=== PATIENT | male | born 1985 | race American Indian/Alaskan Native ===

== ENCOUNTER 2018-06-13 09:07 | Inpatient (IN) | payer MEDICAID ==
[2018-06-13 10:16] LABS: BASO # 0.1 K/uL (0.0-0.2); BASO % 1.5 % (0.0-2.0); EOS # 0.9 K/uL (0.0-0.7); EOS % 10.5 % (0.0-4.0); HEMOGLOBIN 12.6 g/dL (12.0-18.0); LYMPH # 1.9 K/uL (1.0-4.3); LYMPH % 22.2 % (20.0-40.0); MEAN CORPUSCULAR HEMOGLOBIN 26.2 pg (27.0-31.0); MEAN CORPUSCULAR HGB CONC 33.4 g/dL (33.0-37.0); MEAN PLATELET VOLUME 7.5 fL (7.2-11.7); MONO # 0.5 K/uL (0.0-0.8); MONO % 5.3 % (0.0-10.0); NEUT # 5.3 K/uL (1.8-7.0); NEUT % 60.5 % (50.0-75.0); RBC 4.79 Mil/uL (4.40-5.90); RED CELL DISTRIBUTION WIDTH 16.2 % (11.5-14.5); WHITE BLOOD COUNT 8.8 K/uL (4.8-10.8)
[2018-06-13 10:20] LABS: MEAN CELL VOLUME 78.6 fL (80.0-94.0)
[2018-06-13 10:24] LABS: ALB/GLOB RATIO 1.1 (1.0-2.1); ALBUMIN 3.8 g/dL (3.5-5.0); CALCIUM 8.8 mg/dl (8.6-10.4)
[2018-06-13 10:33] LABS: SQUAMOUS EPITHIAL 12 /hpf (0-5); URINE BACTERIA RARE (<OCC); URINE BILIRUBIN NEGATIVE (NEGATIVE); URINE BLOOD NEGATIVE (NEGATIVE); URINE CLARITY Hazy (Clear); URINE COLOR Yellow (YELLOW); URINE GLUCOSE (UA) NORMAL (Normal); URINE LEUKOCYTE ESTERASE 3+ Leu/uL (Negative); URINE PROTEIN 2+ mg/dL (NEGATIVE)
--- NOTE | 2018-06-13 10:34 | C.PDOC ---
History Of Present Illness 33 y/o male,w/PMhx of HTN, presents to the ER complaining of shortness of breath which began yesterday. Patient states that the shortness of breath is worse with walking. Patient reports that he ran out of his blood pressure medications 3 weeks ago. Denies having CP, fever,chills, nausea, and vomiting. Of note, patient was admitted for pneumonia in [facility] in February 2018. Time Seen by Provider: 06/13/18 09:30 Chief Complaint (Nursing): Shortness Of Breath History Per: Patient History/Exam Limitations: no limitations Onset/Duration Of Symptoms: Days Current Symptoms Are (Timing): Still Present Severity: Moderate Past Medical History Reviewed: Historical Data, Nursing Documentation, Vital Signs Vital Signs: Last Vital Signs Temp 97.9 F 06/13/18 09:13 Pulse 86 06/13/18 10:21 Resp 21 06/13/18 10:21 BP 150/98 H 06/13/18 10:21 Pulse Ox 99 06/13/18 10:21 - Medical History PMH: HTN Denies: Chronic Kidney Disease Surgical History: No Surg Hx Family History: States: No Known Family Hx - Social History Hx Alcohol Use: Yes Hx Substance Use: No Review Of Systems Except As Marked, All Systems Reviewed And Found Negative. Constitutional: Negative for: Fever, Chills Cardiovascular: Negative for: Chest Pain Respiratory: Positive for: Shortness of Breath Gastrointestinal: Negative for: Nausea, Vomiting Physical Exam - Physical Exam Appears: Non-toxic, No Acute Distress Skin: Normal Color, Warm, Dry Head: Atraumatic, Normacephalic Eye(s): bilateral: Normal Inspection Nose: Normal Oral Mucosa: Moist Neck: Supple Chest: Symmetrical Cardiovascular: Rhythm Regular Respiratory: Normal Breath Sounds, No Rales, No Rhonchi, No Wheezing Gastrointestinal/Abdominal: Normal Exam, Soft, No Tenderness, No Guarding, No Rebound Neurological/Psych: Oriented x3, Normal Speech Additional Physical Exam Comments: pt is hypertensive ED Course And Treatment - Laboratory Results Result Diagrams: 06/13/18 10:08 06/13/18 10:08 Lab Results: Total Bilirubin 0.6 mg/dL (0.2-1.3) 06/13/18 10:08 AST 23 U/L (17-59) 06/13/18 10:08 ALT 21 U/L (21-72) D 06/13/18 10:08 Alkaline Phosphatase 63 U/L (38-126) 06/13/18 10:08 Total Protein 7.1 g/dL (6.3-8.3) 06/13/18 10:08 Albumin 3.8 g/dL (3.5-5.0) 06/13/18 10:08 Globulin 3.3 gm/dL (2.2-3.9) 06/13/18 10:08 Albumin/Globulin Ratio 1.1 (1.0-2.1) 06/13/18 10:08 Lab Interpretation: No Acute Changes ECG: Interpreted By Me ECG Rhythm: Sinus Rhythm, R BBB, ST/T Changes, Nonspecific Changes Rate From EC O2 Sat by Pulse Oximetry: 99 (RA) Pulse Ox Interpretation: Normal - Radiology CXR: Interpreted by Me CXR Interpretation: Yes: No Acute Disease - Other Rad No standard instances X-Ray: Viewed By Me, Read By Radiologist Interpretation: FINDINGS: LUNGS: Mild to moderate interstitial prominence may reflect infection or edema. No focal consolidation. PLEURA: No significant pleural effusion identified. No definite pneumothorax . CARDIOVASCULAR: Heart size appears top normal. No atherosclerotic calcification present. OSSEOUS STRUCTURES: No acute osseous abnormality identified. VISUALIZED UPPER ABDOMEN: Unremarkable. OTHER FINDINGS: None. IMPRESSION: Mild to moderate interstitial prominence may reflect infection or edema. - CT Scan/US No standard instances Other Rad Studies (CT/US): Read By Radiologist, Radiology Report Reviewed CT/US Interpretation: FINDINGS: VENTILATION COMPONENT: Normal. PERFUSION COMPONENT: Heterogeneous distribution of radionuclide. No geographic, segmental, lobar abnormalities apparent on the present examination. Heterogeneous perfusion consistent with findings on recent chest x-ray. IMPRESSION: Low probability ventilation perfusion scan for pulmonary embolism. Progress Note: Treated with norvasc 10 mg PO. Case discussed with hospitalist who agrees to OBS. Doppler LE-neg for DVT. On re-evaluation lungs clear Reassessment Condition: Unchanged - Physician Consult Information Physician Contacted: Gali Duke Outcome Of Conversation: admit Medical Decision Making Medical Decision Making: Plan: --Labs --ECG --CXR --Norvasc PO Disposition Discussed With : Gali Duke Doctor Will See Patient In The: Hospital - Disposition Disposition: HOSPITALIZED Disposition Time: 12:00 Condition: STABLE - POA Present On Arrival: None - Clinical Impression Clinical Impression: Hypertension, Dyspnea - PA / DIRECTOR HEMATOLOGY / Resident Statement MD/DO has reviewed & agrees with the documentation as recorded. - Scribe Statement The provider has reviewed the documentation as recorded by the Scribe Quinton Caban Provider Attestation All medical record entries made by the Scribe were at my direction and personally dictated by me. I have reviewed the chart and agree that the record accurately reflects my personal performance of the history, physical exam, medical decision making, and the department course for this patient. I have also personally directed, reviewed, and agree with the discharge instructions and disposition. Decision To Admit - Pt Status Changed To: Hospital Disposition Of: Observation - . Bed Request Type: Regular Admitting Physician: Gali Duke Patient Diagnosis: Hypertension, Dyspnea
[2018-06-13 10:36] LABS: TROPONIN I 0.088 ng/mL (0.00-0.120)
--- NOTE | 2018-06-13 11:22 | RAD ---
HISTORY: Cough r/o CHF COMPARISON: Chest x-ray performed 02/28/18 TECHNIQUE: Chest PA and lateral, 2 views FINDINGS: LUNGS: Mild to moderate interstitial prominence may reflect infection or edema. No focal consolidation. PLEURA: No significant pleural effusion identified. No definite pneumothorax . CARDIOVASCULAR: Heart size appears top normal. No atherosclerotic calcification present. OSSEOUS STRUCTURES: No acute osseous abnormality identified. VISUALIZED UPPER ABDOMEN: Unremarkable. OTHER FINDINGS: None. IMPRESSION: Mild to moderate interstitial prominence may reflect infection or edema.
--- NOTE | 2018-06-13 12:08 | CP.PCM.HP ---
<Nayan Lincoln - Last Filed: 06/13/18 19:44> History of Present Illness - History of Present Illness History of Present Illness: PGY3 note for Dr. Lerma's service Patient is a 33 year old male, with PMHx of HTN, pulmonary HTN, CHF (systolic), CKD (stage III) and recent admission to [facility] in 02/2018 for pneumonia, presents for shortness of breath. Patient states he began noticing increased SOB and generalized fatigue over "the last few days" but became markedly worse yesterday. He states he became "winded tying his shoes" and knew he had to go to the hospital. SOB worse with walking, improves mildly with rest. States during shower he had episode of "chest tightness" without radiation to arm/neck, that passed "a few minutes after he finished showering." Admits he has not been restricting his fluid intake since discharge. Admits he has not taken any medications prescribed at previous discharge for the last month. Former smoker (1 ppd x 15 yrs; quit in 02/2018). Denies family history of blood clots, heart disease, or kidney disease. Denies having fever,chills, difficulty urinating, change in urine stream, urgency, nausea, and vomiting. PMHx: see above Surgical Hx: None Allergies: NKA Social: 1 ppd smoker x15 years, but quit after discharge in February. Drinks 2x per week "1-2 beers" each time. Denies drug use including Marijuana, cocaine, heroin, or other. Unemployed. Lives in apartment with girlfriend in . Hospitalizations: 02/2018 ([facility] - Pneumonia) Family Hx: No known family hx Medications: (At discharge from [facility] 06/13/18) ASA 81 mg PO daily, Crestor 5 mg PO HS, Lopressor 50 mg PO BID (03/03), Entresto 1 tab PO BID, Norvasc 10 mg PO daily but admits not taking BP meds x 3 weeks PMD: None Present on Admission - Present on Admission Any Indicators Present on Admission: No History of DVT/PE: No History of Uncontrolled Diabetes: No Review of Systems - Constitutional Constitutional: absent: Chills, Fever - EENT Eyes: absent: Change in Vision Ears: absent: Tinnitus, Dizziness Nose/Mouth/Throat: absent: Hoarsness - Cardiovascular Cardiovascular: Dyspnea, Dyspnea on Exertion. absent: Chest Pain - Respiratory Respiratory: Cough, Dyspnea - Gastrointestinal Gastrointestinal: absent: Abdominal Pain, Nausea, Vomiting - Genitourinary Genitourinary: absent: Dysuria, Flank Pain, Hematuria - Musculoskeletal Musculoskeletal: absent: Numbness, Tingling - Integumentary Integumentary: absent: Dry Skin, Wounds - Neurological Neurological: Weakness - Psychiatric Psychiatric: absent: Anxiety, Depression - Endocrine Endocrine: Fatigue Past Patient History - Past Medical History & Family History Past Medical History?: Yes - Past Social History Smoking Status: Heavy Smoker > 10 Cigarettes Daily - CARDIAC Hx Hypertension: Yes - PULMONARY Hx Respiratory Disorders: No - NEUROLOGICAL Hx Neurological Disorder: No - HEENT Hx HEENT Problems: No - RENAL Hx Chronic Kidney Disease: No - ENDOCRINE/METABOLIC Hx Endocrine Disorders: No - HEMATOLOGICAL/ONCOLOGICAL Hx Blood Disorders: No - INTEGUMENTARY Hx Dermatological Problems: No - MUSCULOSKELETAL/RHEUMATOLOGICAL Hx Musculoskeletal Disorders: No Hx Falls: No - GASTROINTESTINAL Hx Gastrointestinal Disorders: No - GENITOURINARY/GYNECOLOGICAL Hx Genitourinary Disorders: No - PSYCHIATRIC Hx Substance Use: No - SURGICAL HISTORY Hx Surgeries: No - ANESTHESIA Hx Anesthesia: No Meds Allergies/Adverse Reactions: Allergies Allergy/AdvReac Type Severity Reaction Status Date / Time No Known Allergies Allergy Verified 06/13/18 09:18 Physical Exam - Constitutional Appears: Non-toxic, No Acute Distress - Head Exam Head Exam: ATRAUMATIC, NORMAL INSPECTION - Eye Exam Eye Exam: EOMI. absent: Scleral icterus Pupil Exam: PERRL - ENT Exam ENT Exam: Mucous Membranes Moist, Normal Exam - Neck Exam Neck exam: Positive for: Normal Inspection - Respiratory Exam Respiratory Exam: Rales (bases of both lungs), NORMAL BREATHING PATTERN - Cardiovascular Exam Cardiovascular Exam: REGULAR RHYTHM, +S1, +S2. absent: Tachycardia, Systolic Murmur - GI/Abdominal Exam GI & Abdominal Exam: Normal Bowel Sounds, Soft. absent: Tenderness - Extremities Exam Extremities exam: Positive for: normal inspection. Negative for: pedal edema - Back Exam Back exam: absent: CVA tenderness (L), CVA tenderness (R) - Neurological Exam Neurological exam: Alert, CN II-XII Intact, Oriented x3 - Psychiatric Exam Psychiatric exam: Normal Affect, Normal Mood - Skin Skin Exam: Dry, Normal Color, Warm Results - Vital Signs Recent Vital Signs: Last Vital Signs Temp 97.9 F 06/13/18 09:13 Pulse 79 06/13/18 11:05 Resp 30 H 06/13/18 11:05 BP 153/108 H 06/13/18 11:05 Pulse Ox 99 06/13/18 11:38 - Labs Result Diagrams: 06/13/18 10:08 06/13/18 10:08 Labs: Laboratory Results - last 24 hr 06/13/18 06/13/18 06/13/18 10:08 10:08 10:08 WBC 8.8 RBC 4.79 Hgb 12.6 Hct 37.7 MCV 78.6 L D MCH 26.2 L MCHC 33.4 RDW 16.2 H Plt Count 281 D MPV 7.5 Neut % (Auto) 60.5 Lymph % (Auto) 22.2 Branch % (Auto) 5.3 Eos % (Auto) 10.5 H Baso % (Auto) 1.5 Neut # (Auto) 5.3 Lymph # (Auto) 1.9 Branch # (Auto) 0.5 Eos # (Auto) 0.9 H Baso # (Auto) 0.1 D-Dimer, Quantitative 286 H Sodium 137 Potassium 3.9 Chloride 107 Carbon Dioxide 24 Anion Gap 10 BUN 25 H Creatinine 1.9 H Est GFR ( Amer) 49 Est GFR (Non-Af Amer) 41 Random Glucose 103 Calcium 8.8 Total Bilirubin 0.6 AST 23 ALT 21 D Alkaline Phosphatase 63 CK-MB (Mass) 2.00 Troponin I 0.0880 Total Protein 7.1 Albumin 3.8 Globulin 3.3 Albumin/Globulin Ratio 1.1 Urine Color Urine Clarity Urine pH Ur Specific Griffin Urine Protein Urine Glucose (UA) Urine Ketones Urine Blood Urine Nitrate Urine Bilirubin Urine Urobilinogen Ur Leukocyte Esterase Urine WBC (Auto) Urine RBC (Auto) Ur Squamous Epith Cells Urine Bacteria Hyaline Casts 06/13/18 10:21 WBC RBC Hgb Hct MCV MCH MCHC RDW Plt Count MPV Neut % (Auto) Lymph % (Auto) Branch % (Auto) Eos % (Auto) Baso % (Auto) Neut # (Auto) Lymph # (Auto) Branch # (Auto) Eos # (Auto) Baso # (Auto) D-Dimer, Quantitative Sodium Potassium Chloride Carbon Dioxide Anion Gap BUN Creatinine Est GFR ( Amer) Est GFR (Non-Af Amer) Random Glucose Calcium Total Bilirubin AST ALT Alkaline Phosphatase CK-MB (Mass) Troponin I Total Protein Albumin Globulin Albumin/Globulin Ratio Urine Color Yellow Urine Clarity Hazy Urine pH 6.0 Ur Specific Griffin 1.026 Urine Protein 2+ H Urine Glucose (UA) Normal Urine Ketones Negative Urine Blood Negative Urine Nitrate Negative Urine Bilirubin Negative Urine Urobilinogen 2.0 Ur Leukocyte Esterase 3+ H Urine WBC (Auto) 46 H Urine RBC (Auto) 8 H Ur Squamous Epith Cells 12 H Urine Bacteria Rare Hyaline Casts 6-10 H Assessment & Plan - Assessment and Plan (Free Text) Plan: CHF (HFrEF) exacerbation Observation, Telemetry ECHO (02/2018): LV mildly dilated; LV fxn markedly reduced EF ~30%, Mild to moderate concentric LVH; left atrial volume index increased; Moderate mitral regurgitation; Marked pulm HTN CXR (06/13/18): IMPRESSION: Mild to moderate interstitial prominence may reflect infection or edema. EKG (06/13/18): NSR @ 83 bpm; RBBB, Non-specific T wave changes (V5/V6), prolonged Qtc Trop negative x 1, f/u 2 additional Q6H Consult: Dr Cross, Desk Assistant - help appreciated - repeat ECHO - NPO for stress test in AM HOLD Entresto 24/26mg 1 tab PO BID Coreg 6.25 mg PO BID 1 Liter fluid restriction Head of bed 30 degrees Measure weight daily f/u BNP f/u repeat ECHO Chest pain, R/O ACS Trop negative x 2 EKG (06/13/18): NSR @ 83 bpm, T-waves inversion in V5/6, No acute ST changes, prolonged Qtc f/u 1 additional KARYNA/EKG Q6H Elevated D-dimer D-dimer 286 CTA C/I due to elevated Cr VQ scan (06/13/18): low probability of PE. Venous doppler LE: negative for DVT bilateral HTN urgency 180/132 on admission; 182/142 on repeat ED - given Norvasc 10mg in ED; Labetalol 10mg IV once in ED Coreg 6.25 mg PO BID Hydralazine 10mg PO QID HOLD Entresto 24/26mg 1 tab PO BID per Nephro CKD (stage 3), Proteinuria BUN/Cr 25/1.9, GFR 49, UA 2+ protein - Cr in 12/18 baseline: 1.8 Consult: Dr. South, Power Crane Operator - help appreciated - f/u repeat UA, microalbumin:Cr ratio, Protein:Cr ratio, Urine Electrolytes, Renal US - HOLD Entresto Abnormal UA; Proteinuria UA (06/13/18): Protein 2+, LE 3+, WBC 46, RBC 8, Sq Epithlial 12, Hyaline Casts 6- 10 - not clean cath; f/u repeat - Pt Asymptomatic Prolonged QTc Initial EKG showed QTc of 483 Avoid QT prolonging agents (i.e. Zofran) PPX VTE: Heparin 5000u Q12H GI PPX: not indicated at this time SCDs Hall Worker referral Nayan Lincoln PGY3 d/w Dr. Lerma <Priya Lerma V - Last Filed: 06/13/18 22:41> Results - Vital Signs Recent Vital Signs: Last Vital Signs Temp 97.6 F 06/13/18 15:00 Pulse 84 06/13/18 15:00 Resp 20 06/13/18 15:00 BP 163/106 H 06/13/18 15:00 Pulse Ox 96 06/13/18 15:00 - Labs Result Diagrams: 06/13/18 10:08 06/13/18 10:08 Labs: Laboratory Results - last 24 hr 06/13/18 06/13/18 06/13/18 10:08 10:08 10:08 WBC 8.8 RBC 4.79 Hgb 12.6 Hct 37.7 MCV 78.6 L D MCH 26.2 L MCHC 33.4 RDW 16.2 H Plt Count 281 D MPV 7.5 Neut % (Auto) 60.5 Lymph % (Auto) 22.2 Branch % (Auto) 5.3 Eos % (Auto) 10.5 H Baso % (Auto) 1.5 Neut # (Auto) 5.3 Lymph # (Auto) 1.9 Branch # (Auto) 0.5 Eos # (Auto) 0.9 H Baso # (Auto) 0.1 D-Dimer, Quantitative 286 H Sodium 137 Potassium 3.9 Chloride 107 Carbon Dioxide 24 Anion Gap 10 BUN 25 H Creatinine 1.9 H Est GFR ( Amer) 49 Est GFR (Non-Af Amer) 41 Random Glucose 103 Calcium 8.8 Total Bilirubin 0.6 AST 23 ALT 21 D Alkaline Phosphatase 63 Total Creatine Kinase CK-MB (Mass) 2.00 Troponin I 0.0880 NT-Pro-B Natriuret Pep Total Protein 7.1 Albumin 3.8 Globulin 3.3 Albumin/Globulin Ratio 1.1 Urine Color Urine Clarity Urine pH Ur Specific Griffin Urine Protein Urine Glucose (UA) Urine Ketones Urine Blood Urine Nitrate Urine Bilirubin Urine Urobilinogen Ur Leukocyte Esterase Urine WBC (Auto) Urine RBC (Auto) Ur Squamous Epith Cells Urine Bacteria Hyaline Casts Ur Random Creatinine Ur Random Sodium Ur Random Phosphorus Ur Random Calcium Urine Microalbumin Urine Magnesium Urine Opiates Screen Urine Methadone Screen Ur Barbiturates Screen Ur Phencyclidine Scrn Ur Amphetamines Screen U Benzodiazepines Scrn U Oth Cocaine Metabols U Cannabinoids Screen Complement C3 Complement C4 06/13/18 06/13/18 06/13/18 10:21 16:50 16:50 WBC RBC Hgb Hct MCV MCH MCHC RDW Plt Count MPV Neut % (Auto) Lymph % (Auto) Branch % (Auto) Eos % (Auto) Baso % (Auto) Neut # (Auto) Lymph # (Auto) Branch # (Auto) Eos # (Auto) Baso # (Auto) D-Dimer, Quantitative Sodium Potassium Chloride Carbon Dioxide Anion Gap BUN Creatinine Est GFR ( Amer) Est GFR (Non-Af Amer) Random Glucose Calcium Total Bilirubin AST ALT Alkaline Phosphatase Total Creatine Kinase CK-MB (Mass) Troponin I NT-Pro-B Natriuret Pep Total Protein Albumin Globulin Albumin/Globulin Ratio Urine Color Yellow Urine Clarity Hazy Urine pH 6.0 Ur Specific Griffin 1.026 Urine Protein 2+ H Urine Glucose (UA) Normal Urine Ketones Negative Urine Blood Negative Urine Nitrate Negative Urine Bilirubin Negative Urine Urobilinogen 2.0 Ur Leukocyte Esterase 3+ H Urine WBC (Auto) 46 H Urine RBC (Auto) 8 H Ur Squamous Epith Cells 12 H Urine Bacteria Rare Hyaline Casts 6-10 H Ur Random Creatinine 297.4 Ur Random Sodium 130 Ur Random Phosphorus 129.9 Ur Random Calcium 11.7 Urine Microalbumin 536.6 H Urine Magnesium 10.0 Urine Opiates Screen Negative Urine Methadone Screen Negative Ur Barbiturates Screen Negative Ur Phencyclidine Scrn Negative Ur Amphetamines Screen Negative U Benzodiazepines Scrn Negative U Oth Cocaine Metabols Negative U Cannabinoids Screen Negative Complement C3 Complement C4 06/13/18 06/13/18 06/13/18 16:50 16:53 19:02 WBC RBC Hgb Hct MCV MCH MCHC RDW Plt Count MPV Neut % (Auto) Lymph % (Auto) Branch % (Auto) Eos % (Auto) Baso % (Auto) Neut # (Auto) Lymph # (Auto) Branch # (Auto) Eos # (Auto) Baso # (Auto) D-Dimer, Quantitative Sodium Potassium Chloride Carbon Dioxide Anion Gap BUN Creatinine Est GFR ( Amer) Est GFR (Non-Af Amer) Random Glucose Calcium Total Bilirubin AST ALT Alkaline Phosphatase Total Creatine Kinase 353 H CK-MB (Mass) 1.63 Troponin I 0.0660 NT-Pro-B Natriuret Pep 2790 H Total Protein Albumin Globulin Albumin/Globulin Ratio Urine Color Yellow Urine Clarity Hazy Urine pH 5.0 Ur Specific Griffin 1.025 Urine Protein 2+ H Urine Glucose (UA) Normal Urine Ketones Negative Urine Blood Negative Urine Nitrate Negative Urine Bilirubin Negative Urine Urobilinogen Normal Ur Leukocyte Esterase 1+ H Urine WBC (Auto) Urine RBC (Auto) Ur Squamous Epith Cells Urine Bacteria Hyaline Casts Ur Random Creatinine Ur Random Sodium Ur Random Phosphorus Ur Random Calcium Urine Microalbumin Urine Magnesium Urine Opiates Screen Urine Methadone Screen Ur Barbiturates Screen Ur Phencyclidine Scrn Ur Amphetamines Screen U Benzodiazepines Scrn U Oth Cocaine Metabols U Cannabinoids Screen Complement C3 127.0 Complement C4 48.7 H Attending/Attestation - Attestation I have personally seen and examined this patient.: Yes I have fully participated in the care of the patient.: Yes I have reviewed all pertinent clinical information: Yes Notes (Text): Patient seen, examined, and case discussed with day-time resident. Patient with recent hospitalization of february 2018, noted for dilated cardiomyopathy E 30%, was recently on his medications until one month ago, reporting dyspnea at rest, with associated chest tightness today while showering. Patient is a former smoker, about 15 years which he has quit. Cardiology and nephrology consult. Monitor on telemetry. Check cardiac enzymes. Discussed with cardiology, patient for myocardial stress test tomorrow. Patient noted hypertensive urgency; does not check his blood pressure at home and is asymptomatic. Assessment/Plan 1.Acute on Chronic Systolic CHF (HFrEF) exacerbation Assessment/Plan * Cardiology (Dr. Cross) on consult-->help appreciated * Observation, Telemetry * ECHO (02/2018): LV mildly dilated; LV fxn markedly reduced EF ~30%, Mild to moderate concentric LVH; left atrial volume index increased; Moderate mitral regurgitation; Marked pulm HTN * CXR (06/13/18): IMPRESSION: Mild to moderate interstitial prominence may reflect infection or edema. * EKG (06/13/18): NSR @ 83 bpm; RBBB, Non-specific T wave changes (V5/V6), prolonged Qtc * Monitor cardiac enzymes X6. * Monitor on telemetry * held Entresto 24/26mg 1 tab PO BID given renal function * Start Coreg 6.25 mg PO BID * Aspirin 81mg PO daily * 1 Liter fluid restriction * Head of bed 30 degrees * Measure weight daily * Intake and output 2. Chest pain Assessment/Plan * Trop negative x 2 * EKG (06/13/18): NSR @ 83 bpm, T-waves inversion in V5/6, No acute ST changes, prolonged Qtc 3. Elevated D-dimer Assessment/Plan * D-dimer 286 * CTA C/I due to elevated Cr * VQ scan (06/13/18): low probability of PE. * Venous doppler LE: negative for DVT bilateral 4. HTN urgency Assessment/Plan * 180/132 on admission; 182/142 on repeat ED * In the ED, Norvasc 10mg POX1, given Labetolol 10mg IVPX1 * Start Coreg 6.25 mg PO BID * Start Hydralazine 10mg PO QID * HOLD Entresto 24/26mg 1 tab PO BID per Nephro * Diuretic held per nephrology 5. CKD (stage 3), Proteinuria Assessment/Plan * Nephrology (Dr. South) on consult * f/u repeat UA, microalbumin:Cr ratio, Protein:Cr ratio, Urine Electrolytes, Renal US * HOLD Entresto 6. Prolonged QTc Assessment/Plan * Initial EKG showed QTc of 483 * Avoid QT prolonging agents (i.e. Zofran) * monitor mg2+, K+ 7. Tobacco use Assessment/Plan * former: 15 years use. has stopped using 8. PPX * VTE: Heparin 5000u Q12H * GI PPX: not indicated at this time * SCDs * Hall Worker referral * Fluid restriction * intake and output * daily weight
--- NOTE | 2018-06-13 12:43 | VASCLAB ---
Date of service: 06/13/2018 PROCEDURE: Lower Extremity Venous Duplex Exam. HISTORY: dyspnea PRIORS: None. TECHNIQUE: Bilateral common femoral, femoral, popliteal and posterior tibial, peroneal and great saphenous veins were evaluated. Flow was assessed with color Doppler, compressibility, assessment of phasic flow and augmentation response. Report prepared by BETITO Do, RVT FINDINGS: RIGHT: 1. Common Femoral Vein: 1.1. Compressibility - Fully compressible: Thrombus - None : Flow - Phasic: Augmentation -Normal: Reflux - None. 2. Femoral Vein: 2.1. Compressibility - Fully compressible: Thrombus - None : Flow - Phasic: Augmentation -Normal: Reflux - None. 3. Popliteal Vein: 3.1. Compressibility - Fully compressible: Thrombus - None : Flow - Phasic: Augmentation -Normal: Reflux - None. 4. Posterior Tibial Vein: 4.1. Compressibility - Fully compressible: Thrombus - None: Flow - Phasic: Augmentation -Normal: Reflux - None. 5. Peroneal Vein: 5.1. Compressibility - Fully compressible: Thrombus - None: Flow - Phasic: Augmentation -Normal: Reflux - None. 6. Great Saphenous Vein: 6.1. Compressibility - Fully compressible: Thrombus - None: Flow - Phasic: Augmentation - Normal: Reflux - None. LEFT: 1. Common Femoral Vein: 1.1. Compressibility - Fully compressible: Thrombus - None: Flow - Phasic: Augmentation -Normal: Reflux - None. 2. Femoral Vein: 2.1. Compressibility - Fully compressible: Thrombus - None: Flow - Phasic: Augmentation -Normal: Reflux - None. 3. Popliteal Vein: 3.1. Compressibility - Fully compressible: Thrombus - None : Flow - Phasic: Augmentation -Normal: Reflux - None. 4. Posterior Tibial Vein: 4.1. Compressibility - Fully compressible: Thrombus - None: Flow - Phasic: Augmentation -Normal: Reflux - None. 5. Peroneal Vein: 5.1. Compressibility - Fully compressible: Thrombus - None: Flow - Phasic: Augmentation -Normal: Reflux - None. 6. Great Saphenous Vein: 6.1. Compressibility - Fully compressible: Thrombus - None: Flow - Phasic: Augmentation - Normal: Reflux - None. OTHER FINDINGS: Right: None significant. Left: None significant. IMPRESSION: Right: No evidence of deep or superficial vein thrombosis of the right lower extremity. Normal valve function noted of the right side. Left: No evidence of deep or superficial vein thrombosis of the left lower extremity. Normal valve function noted of the left side.
[2018-06-13] MEDS ORDERED: Labetalol 5mg/ml (4ml) IV ONE (13:00)
--- NOTE | 2018-06-13 13:16 | NM ---
Date of service: 06/13/2018 COMPARISON: June 13, 2018. Two view chest. June 13, 2018. Lower extremity duplex venous sonography. TECHNIQUE: 6.1 mCi technetium 99-m Xe-133 Gas. 4.2 mCI technetium 99-m MAA administered intravenously. FINDINGS: VENTILATION COMPONENT: Normal. PERFUSION COMPONENT: Heterogeneous distribution of radionuclide. No geographic, segmental, lobar abnormalities apparent on the present examination. Heterogeneous perfusion consistent with findings on recent chest x-ray. IMPRESSION: Low probability ventilation perfusion scan for pulmonary embolism.
[2018-06-13 17:26] LABS: CK-MB 1.63 ng/mL (0.0-3.38); TROPONIN I 0.066 ng/mL (0.00-0.120)
[2018-06-13 17:32] LABS: URINE BILIRUBIN NEGATIVE (NEGATIVE); URINE BLOOD NEGATIVE (NEGATIVE); URINE CLARITY Hazy (Clear); URINE COLOR Yellow (YELLOW); URINE GLUCOSE (UA) NORMAL (Normal); URINE LEUKOCYTE ESTERASE 1+ Leu/uL (Negative); URINE PROTEIN 2+ mg/dL (NEGATIVE); URINE UROBILINOGEN NORMAL mg/dL (0.2-1.0)
[2018-06-13 17:48] LABS: CREATININE, RANDOM URINE 297.4 mg/dL
--- NOTE | 2018-06-13 17:57 | CP.PCM.CON ---
<Todd Farah - Last Filed: 06/13/18 17:47> History of Present Illness - History of Present Illness History of Present Illness: Nephro Consult note for Dr. South Service Todd Farah DO, PGY-3 Consulted for: CKD This is a 33 yo AA M with PMH of HTN, pulmonary HTN, CHF (systolic), CKD (stage III) and recent admission to [facility] in 02/2018 for pneumonia who, presented for shortness of breath, and was found to be in hypertensive urgency with suspected CHF exacerbation. Patient admits that he has not followed up with physicians since his last discharge, and ran out of medications approx 1 month prior. Reports some shortness of breath/malaise/fatigue for last several days, but acutely worsened today, prompting presentation to hospital. Reports SOB at rest, mildly worsened with exertion. Denies cough/productive cough, chest pain, palpitations, pounding/pulsatile headache, focal weakness, paresthesias, syncope/near-syncope, vision changes, fevers, or chills. Does admit to some dysuria, usually only with initiation of urination, for the past several days, but denies hematuria or discharge. Admits to sexually active and not using protection. Denies hx of STI. 12 system ROS reviewed and negative, except as above. PMH: as above PSH: denies Fam Hx: pt unaware of fam hx Soc Hx: former tobacco user (cigarettes, 1ppd x ~15yr, quit Feb 2018), admits social EtOH (1-2x per week, denies binging), denies illicits/IVDA PMD: none Review of Systems - Review of Systems All systems: reviewed and no additional remarkable complaints except (as per HPI) Past Patient History - Past Medical History & Family History Past Medical History?: Yes - Past Social History Smoking Status: Heavy Smoker > 10 Cigarettes Daily - CARDIAC Hx Hypertension: Yes - PULMONARY Hx Respiratory Disorders: No - NEUROLOGICAL Hx Neurological Disorder: No - HEENT Hx HEENT Problems: No - RENAL Hx Chronic Kidney Disease: No - ENDOCRINE/METABOLIC Hx Endocrine Disorders: No - HEMATOLOGICAL/ONCOLOGICAL Hx Blood Disorders: No - INTEGUMENTARY Hx Dermatological Problems: No - MUSCULOSKELETAL/RHEUMATOLOGICAL Hx Musculoskeletal Disorders: No Hx Falls: No - GASTROINTESTINAL Hx Gastrointestinal Disorders: No - GENITOURINARY/GYNECOLOGICAL Hx Genitourinary Disorders: No - PSYCHIATRIC Hx Substance Use: No - SURGICAL HISTORY Hx Surgeries: No - ANESTHESIA Hx Anesthesia: No Meds Allergies/Adverse Reactions: Allergies Allergy/AdvReac Type Severity Reaction Status Date / Time No Known Allergies Allergy Verified 06/13/18 09:18 - Medications Medications: Current Medications Aspirin (Ecotrin) 81 mg PO DAILY [facility] Carvedilol (Coreg) 6.25 mg PO BID [facility] Heparin Sodium (Porcine) (Heparin) 5,000 units SC Q12 [facility] Hydralazine HCl (Apresoline) 10 mg PO QID [facility] Last Admin: 06/13/18 14:10 Dose: 10 mg Sacubitril/Valsartan (Entresto 24 Mg-26 Mg) 1 tab PO BID [facility] Physical Exam - Constitutional Appears: Non-toxic, No Acute Distress - Head Exam Head Exam: ATRAUMATIC, NORMAL INSPECTION, NORMOCEPHALIC - Eye Exam Eye Exam: EOMI, Normal appearance. absent: Conjunctival injection, Scleral icterus Pupil Exam: absent: Irregular, Unequal - ENT Exam ENT Exam: Mucous Membranes Moist - Neck Exam Neck exam: Positive for: Full Rom, Normal Inspection. Negative for: Lymphadenopathy - Respiratory Exam Respiratory Exam: Clear to Auscultation Bilateral, NORMAL BREATHING PATTERN. absent: Accessory Muscle Use, Chest Wall Tenderness, Decreased Breath Sounds, Rales, Rhonchi, Wheezes - Cardiovascular Exam Cardiovascular Exam: Tachycardia, REGULAR RHYTHM, JVD (2-3cm above clavicle, no hepatojugular reflux appreciated), +S1, +S2. absent: Bradycardia, Irregular Rhythm - GI/Abdominal Exam GI & Abdominal Exam: Normal Bowel Sounds, Soft. absent: Diminished Bowel Sounds, Distended, Firm, Guarding, Hyperactive Bowel Sounds, Hypoactive Bowel Sounds, Organomegaly, Pulsatile Mass, Rigid, Tenderness - Extremities Exam Extremities exam: Positive for: normal capillary refill, normal inspection, pedal pulses present. Negative for: calf tenderness, joint swelling, pedal edema, tenderness - Back Exam Back exam: absent: CVA tenderness (L), CVA tenderness (R), vertebral tenderness - Neurological Exam Additional comments: awake and alert, changes position from lying to sitting and back on own without issue moving all extremities spontaneously and on command follows all commands appropriately - Psychiatric Exam Psychiatric exam: Normal Affect, Normal Mood - Skin Skin Exam: Dry, Intact, Normal Color, Warm Results - Vital Signs Recent Vital Signs: Last Vital Signs Temp 97.6 F 04/09/19 15:00 Pulse 84 06/13/18 15:00 Resp 20 06/13/18 15:00 BP 163/106 H 06/13/18 15:00 Pulse Ox 96 06/13/18 15:00 - Labs Result Diagrams: 06/13/18 10:08 06/13/18 10:08 Labs: Laboratory Results - last 24 hr 06/13/18 06/13/18 06/13/18 10:08 10:08 10:08 WBC 8.8 RBC 4.79 Hgb 12.6 Hct 37.7 MCV 78.6 L D MCH 26.2 L MCHC 33.4 RDW 16.2 H Plt Count 281 D MPV 7.5 Neut % (Auto) 60.5 Lymph % (Auto) 22.2 [place] % (Auto) 5.3 Eos % (Auto) 10.5 H Baso % (Auto) 1.5 Neut # (Auto) 5.3 Lymph # (Auto) 1.9 [place] # (Auto) 0.5 Eos # (Auto) 0.9 H Baso # (Auto) 0.1 D-Dimer, Quantitative 286 H Sodium 137 Potassium 3.9 Chloride 107 Carbon Dioxide 24 Anion Gap 10 BUN 25 H Creatinine 1.9 H Est GFR ( Amer) 49 Est GFR (Non-Af Amer) 41 Random Glucose 103 Calcium 8.8 Total Bilirubin 0.6 AST 23 ALT 21 D Alkaline Phosphatase 63 Total Creatine Kinase CK-MB (Mass) 2.00 Troponin I 0.0880 NT-Pro-B Natriuret Pep Total Protein 7.1 Albumin 3.8 Globulin 3.3 Albumin/Globulin Ratio 1.1 Urine Color Urine Clarity Urine pH Ur Specific [place] Urine Protein Urine Glucose (UA) Urine Ketones Urine Blood Urine Nitrate Urine Bilirubin Urine Urobilinogen Ur Leukocyte Esterase Urine WBC (Auto) Urine RBC (Auto) Ur Squamous Epith Cells Urine Bacteria Hyaline Casts 06/13/18 06/13/18 06/13/18 10:21 16:50 16:53 WBC RBC Hgb Hct MCV MCH MCHC RDW Plt Count MPV Neut % (Auto) Lymph % (Auto) [place] % (Auto) Eos % (Auto) Baso % (Auto) Neut # (Auto) Lymph # (Auto) [place] # (Auto) Eos # (Auto) Baso # (Auto) D-Dimer, Quantitative Sodium Potassium Chloride Carbon Dioxide Anion Gap BUN Creatinine Est GFR ( Amer) Est GFR (Non-Af Amer) Random Glucose Calcium Total Bilirubin AST ALT Alkaline Phosphatase Total Creatine Kinase 353 H CK-MB (Mass) 1.63 Troponin I 0.0660 NT-Pro-B Natriuret Pep 2790 H Total Protein Albumin Globulin Albumin/Globulin Ratio Urine Color Yellow Yellow Urine Clarity Hazy Hazy Urine pH 6.0 5.0 Ur Specific [place] 1.026 1.025 Urine Protein 2+ H 2+ H Urine Glucose (UA) Normal Normal Urine Ketones Negative Negative Urine Blood Negative Negative Urine Nitrate Negative Negative Urine Bilirubin Negative Negative Urine Urobilinogen 2.0 Normal Ur Leukocyte Esterase 3+ H 1+ H Urine WBC (Auto) 46 H Urine RBC (Auto) 8 H Ur Squamous Epith Cells 12 H Urine Bacteria Rare Hyaline Casts 6-10 H Assessment & Plan - Assessment and Plan (Free Text) Assessment: This is a 33 yo AA M with PMH of HTN, pulmonary HTN, CHF (systolic), CKD (stage III) and recent admission to [facility] in 02/2018 for pneumonia who, presented for shortness of breath, and was found to be in hypertensive urgency with suspected CHF exacerbation. Nephro was consulted for CKD. Plan: 1) acutely worsening shortness of breath, suspect CHF exacerbation 2) Hypertensive urgency 3) CKD 4) Medication non-compliance x1 month 5) HFrEF, 30% on last Echo 6) Pulm HTN -Cr 1.9, baseline based on prior admissions appears to be 1.6-1.8, so not STALIN overlying UA obtained and reviewed, likely dirty catch due to 12 Epi cells, but 2+ protein, which was present on last UA, so likely real Urine electrolytes, microalbumin, creatinine, and protein ordered, f/u F/u Renal US -Ddx for renal dysfunction: uncontrolled HTN vs Cardiorenal vs drug-induced vs autoimmune F/u Utox HALLEY, ANCA, and complement ordered, f/u 24hr urine protein and creatinine clearance ordered, f/u RPR and GC/chlamydia ordered given sexual hx Recommend holding Lasix, doesn't appear fluid overloaded at this time Recommend caution decrease of BP, want to avoid too-aggressive BP decreases - > watershed infarcts, goal is 25% per 24hrs (160's systolic today) Patient seen and discussed with attending, Dr. South. <Jacky South - Last Filed: 06/14/18 06:07> Meds - Medications Medications: Current Medications Aspirin (Ecotrin) 81 mg PO DAILY [facility] Carvedilol (Coreg) 6.25 mg PO BID [facility] Last Admin: 06/13/18 17:55 Dose: 6.25 mg Heparin Sodium (Porcine) (Heparin) 5,000 units SC Q12 [facility] Last Admin: 06/13/18 21:25 Dose: 5,000 units Hydralazine HCl (Apresoline) 10 mg PO QID [facility] Last Admin: 06/13/18 21:25 Dose: 10 mg Labetalol HCl (Trandate) 20 mg IVP Q6H PRN PRN Reason: Systolic Blood Pressure Nitroglycerin (Nitrostat Sl Tab) 0.4 mg SL Q5M PRN PRN Reason: Pain, severe (8-10) Sacubitril/Valsartan (Entresto 24 Mg-26 Mg) 1 tab PO BID [facility] Results - Vital Signs Recent Vital Signs: Last Vital Signs Temp 97.8 F 06/14/18 00:00 Pulse 83 06/14/18 03:53 Resp 20 06/14/18 00:00 BP 144/80 06/14/18 00:00 Pulse Ox 97 06/14/18 00:00 - Labs Result Diagrams: 06/13/18 10:08 06/13/18 10:08 Labs: Laboratory Results - last 24 hr 06/13/18 06/13/18 06/13/18 10:08 10:08 10:08 WBC 8.8 RBC 4.79 Hgb 12.6 Hct 37.7 MCV 78.6 L D MCH 26.2 L MCHC 33.4 RDW 16.2 H Plt Count 281 D MPV 7.5 Neut % (Auto) 60.5 Lymph % (Auto) 22.2 [place] % (Auto) 5.3 Eos % (Auto) 10.5 H Baso % (Auto) 1.5 Neut # (Auto) 5.3 Lymph # (Auto) 1.9 [place] # (Auto) 0.5 Eos # (Auto) 0.9 H Baso # (Auto) 0.1 D-Dimer, Quantitative 286 H Sodium 137 Potassium 3.9 Chloride 107 Carbon Dioxide 24 Anion Gap 10 BUN 25 H Creatinine 1.9 H Est GFR ( Amer) 49 Est GFR (Non-Af Amer) 41 Random Glucose 103 Calcium 8.8 Total Bilirubin 0.6 AST 23 ALT 21 D Alkaline Phosphatase 63 Total Creatine Kinase CK-MB (Mass) 2.00 Troponin I 0.0880 NT-Pro-B Natriuret Pep Total Protein 7.1 Albumin 3.8 Globulin 3.3 Albumin/Globulin Ratio 1.1 Urine Color Urine Clarity Urine pH Ur Specific [place] Urine Protein Urine Glucose (UA) Urine Ketones Urine Blood Urine Nitrate Urine Bilirubin Urine Urobilinogen Ur Leukocyte Esterase Urine WBC (Auto) Urine RBC (Auto) Ur Squamous Epith Cells Urine Bacteria Hyaline Casts Ur Random Creatinine Ur Random Sodium Ur Random Phosphorus Ur Random Calcium Urine Microalbumin Urine Magnesium Urine Opiates Screen Urine Methadone Screen Ur Barbiturates Screen Ur Phencyclidine Scrn Ur Amphetamines Screen U Benzodiazepines Scrn U Oth Cocaine Metabols U Cannabinoids Screen Complement C3 Complement C4 06/13/18 06/13/18 06/13/18 10:21 16:50 16:50 WBC RBC Hgb Hct MCV MCH MCHC RDW Plt Count MPV Neut % (Auto) Lymph % (Auto) [place] % (Auto) Eos % (Auto) Baso % (Auto) Neut # (Auto) Lymph # (Auto) [place] # (Auto) Eos # (Auto) Baso # (Auto) D-Dimer, Quantitative Sodium Potassium Chloride Carbon Dioxide Anion Gap BUN Creatinine Est GFR ( Amer) Est GFR (Non-Af Amer) Random Glucose Calcium Total Bilirubin AST ALT Alkaline Phosphatase Total Creatine Kinase CK-MB (Mass) Troponin I NT-Pro-B Natriuret Pep Total Protein Albumin Globulin Albumin/Globulin Ratio Urine Color Yellow Urine Clarity Hazy Urine pH 6.0 Ur Specific [place] 1.026 Urine Protein 2+ H Urine Glucose (UA) Normal Urine Ketones Negative Urine Blood Negative Urine Nitrate Negative Urine Bilirubin Negative Urine Urobilinogen 2.0 Ur Leukocyte Esterase 3+ H Urine WBC (Auto) 46 H Urine RBC (Auto) 8 H Ur Squamous Epith Cells 12 H Urine Bacteria Rare Hyaline Casts 6-10 H Ur Random Creatinine 297.4 Ur Random Sodium 130 Ur Random Phosphorus 129.9 Ur Random Calcium 11.7 Urine Microalbumin 536.6 H Urine Magnesium 10.0 Urine Opiates Screen Negative Urine Methadone Screen Negative Ur Barbiturates Screen Negative Ur Phencyclidine Scrn Negative Ur Amphetamines Screen Negative U Benzodiazepines Scrn Negative U Oth Cocaine Metabols Negative U Cannabinoids Screen Negative Complement C3 Complement C4 06/13/18 06/13/18 06/13/18 16:50 16:53 19:02 WBC RBC Hgb Hct MCV MCH MCHC RDW Plt Count MPV Neut % (Auto) Lymph % (Auto) [place] % (Auto) Eos % (Auto) Baso % (Auto) Neut # (Auto) Lymph # (Auto) [place] # (Auto) Eos # (Auto) Baso # (Auto) D-Dimer, Quantitative Sodium Potassium Chloride Carbon Dioxide Anion Gap BUN Creatinine Est GFR ( Amer) Est GFR (Non-Af Amer) Random Glucose Calcium Total Bilirubin AST ALT Alkaline Phosphatase Total Creatine Kinase 353 H CK-MB (Mass) 1.63 Troponin I 0.0660 NT-Pro-B Natriuret Pep 2790 H Total Protein Albumin Globulin Albumin/Globulin Ratio Urine Color Yellow Urine Clarity Hazy Urine pH 5.0 Ur Specific [place] 1.025 Urine Protein 2+ H Urine Glucose (UA) Normal Urine Ketones Negative Urine Blood Negative Urine Nitrate Negative Urine Bilirubin Negative Urine Urobilinogen Normal Ur Leukocyte Esterase 1+ H Urine WBC (Auto) Urine RBC (Auto) Ur Squamous Epith Cells Urine Bacteria Hyaline Casts Ur Random Creatinine Ur Random Sodium Ur Random Phosphorus Ur Random Calcium Urine Microalbumin Urine Magnesium Urine Opiates Screen Urine Methadone Screen Ur Barbiturates Screen Ur Phencyclidine Scrn Ur Amphetamines Screen U Benzodiazepines Scrn U Oth Cocaine Metabols U Cannabinoids Screen Complement C3 127.0 Complement C4 48.7 H 06/14/18 00:16 WBC RBC Hgb Hct MCV MCH MCHC RDW Plt Count MPV Neut % (Auto) Lymph % (Auto) [place] % (Auto) Eos % (Auto) Baso % (Auto) Neut # (Auto) Lymph # (Auto) [place] # (Auto) Eos # (Auto) Baso # (Auto) D-Dimer, Quantitative Sodium Potassium Chloride Carbon Dioxide Anion Gap BUN Creatinine Est GFR ( Amer) Est GFR (Non-Af Amer) Random Glucose Calcium Total Bilirubin AST ALT Alkaline Phosphatase Total Creatine Kinase 297 H CK-MB (Mass) 1.37 Troponin I 0.0910 NT-Pro-B Natriuret Pep Total Protein Albumin Globulin Albumin/Globulin Ratio Urine Color Urine Clarity Urine pH Ur Specific [place] Urine Protein Urine Glucose (UA) Urine Ketones Urine Blood Urine Nitrate Urine Bilirubin Urine Urobilinogen Ur Leukocyte Esterase Urine WBC (Auto) Urine RBC (Auto) Ur Squamous Epith Cells Urine Bacteria Hyaline Casts Ur Random Creatinine Ur Random Sodium Ur Random Phosphorus Ur Random Calcium Urine Microalbumin Urine Magnesium Urine Opiates Screen Urine Methadone Screen Ur Barbiturates Screen Ur Phencyclidine Scrn Ur Amphetamines Screen U Benzodiazepines Scrn U Oth Cocaine Metabols U Cannabinoids Screen Complement C3 Complement C4 Attending/Attestation - Attestation I have personally seen and examined this patient.: Yes I have fully participated in the care of the patient.: Yes I have reviewed all pertinent clinical information: Yes Notes (Text): Patient seen and examined; I agree with the resident's note as above with the following additions/edits: 33 yo M w/ pmh of htn, CHF w/ severe systolic dysfunction and pulm htn (diagnosed in 02/2018 on admission with PNA) and renal insufficiency, admitted today with dyspnea in the setting of severely uncontrolled htn, nephrology being consulted for CKD; Patient's dyspnea much improved by the time of encounter; dyspnea occurred in the setting of being off all meds for well over 1 month; patient only received single dose of IVP labetalol 10 mg, PO hydralazine 10 mg and amlodipine 10 mg today prior to encounter, did not receive any diuretic; Exam doesn't indicate any sign of volume overload (no peripheral edema/JVD); CXR is pertinent for prominent interstitial markings but no overt pulm vasc congestion; Serum creatinine close to that of previous admission and consistent with CKD IIIA; etiology is concerning for persistence of 2+ albuminuria on dipstick and needs further workup for proteinuric kidney disease; vasculitis needs to be considered especially given CXR findings; Awaiting repeat BP reading; need to avoid dropping BP rapidly to prevent "normotensive ATN"; will hold off on entresto for now and hold diuretics; will decrease coreg to 6.25 mg bid; continue hydralazine 10 mg qid and amlodipine 10 mg daily; -Further serologic workup as ordered; -Obtaining 24 hr urine for protein; -Avoid nephrotoxic agents; -May need renal biopsy; will hold ASA for now; Thank you for this referral, we will be following closely.
[2018-06-13] MEDS ORDERED: Sacubitril/Valsartan 24-26mg Tab PO SCH (18:00)
--- NOTE | 2018-06-13 18:01 | US ---
Date of service: 06/13/2018 PROCEDURE: Ultrasound of the Kidneys HISTORY: ckd COMPARISON: None available. TECHNIQUE: Sonogram of the kidneys. FINDINGS: RIGHT KIDNEY: Measures: 4.5 x 4.7 x 9.8 cm. Normal in size, contour and echogenicity. No stone, solid mass lesion or hydronephrosis visualized. LEFT KIDNEY: Measures: 5.1 x 5.6 x 9.2 cm. Normal in size, contour and echogenicity. No stone, solid mass lesion or hydronephrosis visualized. OTHER FINDINGS: None. IMPRESSION: Unremarkable renal sonogram.
[2018-06-13 18:49] LABS: BARBITURATES, UR NEGATIVE (NEGATIVE); BENZODIAZEPINES, UR NEGATIVE (NEGATIVE); OPIATES, UR NEGATIVE (NEGATIVE); PHENCYCLIDINE, UR NEGATIVE (NEGATIVE)
[2018-06-13 19:19] LABS: COMPLEMENT C4 48.7 mg/dL (14.0-44.0)
[2018-06-14 01:09] LABS: CK-MB 1.37 ng/mL (0.0-3.38)
[2018-06-14 02:19] LABS: TROPONIN I 0.091 ng/mL (0.00-0.120)
--- NOTE | 2018-06-14 06:29 | CP.PCM.CON ---
History of Present Illness - History of Present Illness History of Present Illness: Reason for Consultation: Chronic systolic CHF Patient is a 33 year old male, with PMHx of HTN, pulmonary HTN, CHF (systolic), CKD (stage III) and recent admission to [facility] in 02/2018 for pneumonia, presents for shortness of breath. Patient states he began noticing increased SOB and generalized fatigue over "the last few days" but became markedly worse yesterday. He states he became "winded tying his shoes" and knew he had to go to the hospital. SOB worse with walking, improves mildly with rest. States during shower he had episode of "chest tightness" without radiation to arm/neck, that passed "a few minutes after he finished showering." Admits he has not been restricting his fluid intake since discharge. Admits he has not taken any medications prescribed at previous discharge for the last month. Former smoker (1 ppd x 15 yrs; quit in 02/2018). Denies family history of blood clots, heart disease, or kidney disease. Denies having fever,chills, difficulty urinating, change in urine stream, urgency, nausea, and vomiting. PMHx: see above Surgical Hx: None Allergies: NKA Social: 1 ppd smoker x15 years, but quit after discharge in February. Drinks 2x per week "1-2 beers" each time. Denies drug use including Marijuana, cocaine, heroin, or other. Unemployed. Lives in apartment with girlfriend in . Hospitalizations: 02/2018 ([facility] - Pneumonia) Family Hx: No known family hx Medications: (At discharge from [facility] 06/13/18) ASA 81 mg PO daily, Crestor 5 mg PO HS, Lopressor 50 mg PO BID (03/03), Entresto 1 tab PO BID, Norvasc 10 mg PO daily but admits not taking BP meds x 3 weeks PMD: None Present on Admission - Present on Admission Any Indicators Present on Admission: No History of DVT/PE: No History of Uncontrolled Diabetes: No Review of Systems - Constitutional Constitutional: absent: Chills, Fever - EENT Eyes: absent: Change in Vision Ears: absent: Tinnitus, Dizziness Nose/Mouth/Throat: absent: Hoarsness - Cardiovascular Cardiovascular: Dyspnea, Dyspnea on Exertion. absent: Chest Pain - Respiratory Respiratory: Cough, Dyspnea - Gastrointestinal Gastrointestinal: absent: Abdominal Pain, Nausea, Vomiting - Genitourinary Genitourinary: absent: Dysuria, Flank Pain, Hematuria - Musculoskeletal Musculoskeletal: absent: Numbness, Tingling - Integumentary Integumentary: absent: Dry Skin, Wounds - Neurological Neurological: Weakness - Psychiatric Psychiatric: absent: Anxiety, Depression - Endocrine Endocrine: Fatigue Meds Allergies/Adverse Reactions: Allergies Allergy/AdvReac Type Severity Reaction Status Date / Time No Known Allergies Allergy Verified 06/13/18 09:18 Physical Exam - Constitutional Appears: Non-toxic, No Acute Distress - Head Exam Head Exam: ATRAUMATIC, NORMAL INSPECTION - Eye Exam Eye Exam: EOMI. absent: Scleral icterus Pupil Exam: PERRL - ENT Exam ENT Exam: Mucous Membranes Moist, Normal Exam - Neck Exam Neck exam: Positive for: Normal Inspection - Respiratory Exam Respiratory Exam: Rales (bases of both lungs), NORMAL BREATHING PATTERN - Cardiovascular Exam Cardiovascular Exam: REGULAR RHYTHM, +S1, +S2. absent: Tachycardia, Systolic Murmur - GI/Abdominal Exam GI & Abdominal Exam: Normal Bowel Sounds, Soft. absent: Tenderness - Extremities Exam Extremities exam: Positive for: normal inspection. Negative for: pedal edema - Back Exam Back exam: absent: CVA tenderness (L), CVA tenderness (R) - Neurological Exam Neurological exam: Alert, CN II-XII Intact, Oriented x3 - Psychiatric Exam Psychiatric exam: Normal Affect, Normal Mood - Skin Skin Exam: Dry, Normal Color, Warm Results - Vital Signs Recent Vital Signs: Last Vital Signs Temp 97.9 F 06/13/18 09:13 Pulse 79 06/13/18 11:05 Resp 30 H 06/13/18 11:05 BP 153/108 H 06/13/18 11:05 Pulse Ox 99 06/13/18 11:38 - Labs Result Diagrams: 06/13/18 10:08 06/13/18 10:08 Labs: Laboratory Results - last 24 hr 06/13/18 06/13/18 06/13/18 10:08 10:08 10:08 WBC 8.8 RBC 4.79 Hgb 12.6 Hct 37.7 MCV 78.6 L D MCH 26.2 L MCHC 33.4 RDW 16.2 H Plt Count 281 D MPV 7.5 Neut % (Auto) 60.5 Lymph % (Auto) 22.2 [place] % (Auto) 5.3 Eos % (Auto) 10.5 H Baso % (Auto) 1.5 Neut # (Auto) 5.3 Lymph # (Auto) 1.9 [place] # (Auto) 0.5 Eos # (Auto) 0.9 H Baso # (Auto) 0.1 D-Dimer, Quantitative 286 H Sodium 137 Potassium 3.9 Chloride 107 Carbon Dioxide 24 Anion Gap 10 BUN 25 H Creatinine 1.9 H Est GFR ( Amer) 49 Est GFR (Non-Af Amer) 41 Random Glucose 103 Calcium 8.8 Total Bilirubin 0.6 AST 23 ALT 21 D Alkaline Phosphatase 63 CK-MB (Mass) 2.00 Troponin I 0.0880 Total Protein 7.1 Albumin 3.8 Globulin 3.3 Albumin/Globulin Ratio 1.1 Urine Color Urine Clarity Urine pH Ur Specific [place] Urine Protein Urine Glucose (UA) Urine Ketones Urine Blood Urine Nitrate Urine Bilirubin Urine Urobilinogen Ur Leukocyte Esterase Urine WBC (Auto) Urine RBC (Auto) Ur Squamous Epith Cells Urine Bacteria Hyaline Casts 06/13/18 10:21 WBC RBC Hgb Hct MCV MCH MCHC RDW Plt Count MPV Neut % (Auto) Lymph % (Auto) [place] % (Auto) Eos % (Auto) Baso % (Auto) Neut # (Auto) Lymph # (Auto) [place] # (Auto) Eos # (Auto) Baso # (Auto) D-Dimer, Quantitative Sodium Potassium Chloride Carbon Dioxide Anion Gap BUN Creatinine Est GFR ( Amer) Est GFR (Non-Af Amer) Random Glucose Calcium Total Bilirubin AST ALT Alkaline Phosphatase CK-MB (Mass) Troponin I Total Protein Albumin Globulin Albumin/Globulin Ratio Urine Color Yellow Urine Clarity Hazy Urine pH 6.0 Ur Specific [place] 1.026 Urine Protein 2+ H Urine Glucose (UA) Normal Urine Ketones Negative Urine Blood Negative Urine Nitrate Negative Urine Bilirubin Negative Urine Urobilinogen 2.0 Ur Leukocyte Esterase 3+ H Urine WBC (Auto) 46 H Urine RBC (Auto) 8 H Ur Squamous Epith Cells 12 H Urine Bacteria Rare Hyaline Casts 6-10 H Assessment & Plan - Assessment and Plan (Free Text) Plan: CHF (HFrEF) exacerbation Observation, Telemetry ECHO (02/2018): LV mildly dilated; LV fxn markedly reduced EF ~30%, Mild to moderate concentric LVH; left atrial volume index increased; Moderate mitral regurgitation; Marked pulm HTN CXR (06/13/18): IMPRESSION: Mild to moderate interstitial prominence may reflect infection or edema. EKG (06/13/18): NSR @ 83 bpm; RBBB, Non-specific T wave changes (V5/V6), prolonged Qtc Trop negative x 1, f/u 2 additional Q6H - repeat ECHO - NPO for stress test in AM HOLD Entresto 24/26mg 1 tab PO BID Coreg 6.25 mg PO BID 1 Liter fluid restriction Head of bed 30 degrees Measure weight daily f/u BNP f/u repeat ECHO Chest pain, R/O ACS Trop negative x 2 EKG (06/13/18): NSR @ 83 bpm, T-waves inversion in V5/6, No acute ST changes, prolonged Qtc f/u 1 additional KARYNA/EKG Q6H Elevated D-dimer D-dimer 286 CTA C/I due to elevated Cr VQ scan (06/13/18): low probability of PE. Venous doppler LE: negative for DVT bilateral HTN urgency 180/132 on admission; 182/142 on repeat ED - given Norvasc 10mg in ED; Labetalol 10mg IV once in ED Coreg 6.25 mg PO BID Hydralazine 10mg PO QID HOLD Entresto 24/26mg 1 tab PO BID per Nephro CKD (stage 3), Proteinuria BUN/Cr 25/1.9, GFR 49, UA 2+ protein - Cr in 02/21 baseline: 1.8 Consult: Dr. South, Furnace Feeder - help appreciated - f/u repeat UA, microalbumin:Cr ratio, Protein:Cr ratio, Urine Electrolytes, Renal US - HOLD Entresto Abnormal UA; Proteinuria UA (06/13/18): Protein 2+, LE 3+, WBC 46, RBC 8, Sq Epithlial 12, Hyaline Casts 6- 10 - not clean cath; f/u repeat - Pt Asymptomatic Prolonged QTc Initial EKG showed QTc of 483 Avoid QT prolonging agents (i.e. Zofran) PPX VTE: Heparin 5000u Q12H GI PPX: not indicated at this time SCDs Scientific Informatics Analyst referral Hx of systolic CHF Uncontrolled HTN Check repeat ECHO Check stress test Will follow Past Patient History - Past Medical History & Family History Past Medical History?: Yes - Past Social History Smoking Status: Heavy Smoker > 10 Cigarettes Daily - CARDIAC Hx Hypertension: Yes - PULMONARY Hx Respiratory Disorders: No - NEUROLOGICAL Hx Neurological Disorder: No - HEENT Hx HEENT Problems: No - RENAL Hx Chronic Kidney Disease: No - ENDOCRINE/METABOLIC Hx Endocrine Disorders: No - HEMATOLOGICAL/ONCOLOGICAL Hx Blood Disorders: No - INTEGUMENTARY Hx Dermatological Problems: No - MUSCULOSKELETAL/RHEUMATOLOGICAL Hx Musculoskeletal Disorders: No Hx Falls: No - GASTROINTESTINAL Hx Gastrointestinal Disorders: No - GENITOURINARY/GYNECOLOGICAL Hx Genitourinary Disorders: No - PSYCHIATRIC Hx Substance Use: No - SURGICAL HISTORY Hx Surgeries: No - ANESTHESIA Hx Anesthesia: No Meds Allergies/Adverse Reactions: Allergies Allergy/AdvReac Type Severity Reaction Status Date / Time No Known Allergies Allergy Verified 06/13/18 09:18 - Medications Medications: Current Medications Carvedilol (Coreg) 6.25 mg PO BID [facility] Last Admin: 06/13/18 17:55 Dose: 6.25 mg Heparin Sodium (Porcine) (Heparin) 5,000 units SC Q12 [facility] Last Admin: 06/13/18 21:25 Dose: 5,000 units Hydralazine HCl (Apresoline) 10 mg PO QID [facility] Last Admin: 06/13/18 21:25 Dose: 10 mg Labetalol HCl (Trandate) 20 mg IVP Q6H PRN PRN Reason: Systolic Blood Pressure Nitroglycerin (Nitrostat Sl Tab) 0.4 mg SL Q5M PRN PRN Reason: Pain, severe (8-10) Sacubitril/Valsartan (Entresto 24 Mg-26 Mg) 1 tab PO BID [facility] Results - Vital Signs Recent Vital Signs: Last Vital Signs Temp 97.8 F 06/14/18 00:00 Pulse 83 06/14/18 03:53 Resp 20 06/14/18 00:00 BP 144/80 06/14/18 00:00 Pulse Ox 97 06/14/18 00:00 - Labs Result Diagrams: 06/13/18 10:08 06/13/18 10:08 Labs: Laboratory Results - last 24 hr 06/13/18 06/13/18 06/13/18 10:08 10:08 10:08 WBC 8.8 RBC 4.79 Hgb 12.6 Hct 37.7 MCV 78.6 L D MCH 26.2 L MCHC 33.4 RDW 16.2 H Plt Count 281 D MPV 7.5 Neut % (Auto) 60.5 Lymph % (Auto) 22.2 [place] % (Auto) 5.3 Eos % (Auto) 10.5 H Baso % (Auto) 1.5 Neut # (Auto) 5.3 Lymph # (Auto) 1.9 [place] # (Auto) 0.5 Eos # (Auto) 0.9 H Baso # (Auto) 0.1 D-Dimer, Quantitative 286 H Sodium 137 Potassium 3.9 Chloride 107 Carbon Dioxide 24 Anion Gap 10 BUN 25 H Creatinine 1.9 H Est GFR ( Amer) 49 Est GFR (Non-Af Amer) 41 Random Glucose 103 Calcium 8.8 Total Bilirubin 0.6 AST 23 ALT 21 D Alkaline Phosphatase 63 Total Creatine Kinase CK-MB (Mass) 2.00 Troponin I 0.0880 NT-Pro-B Natriuret Pep Total Protein 7.1 Albumin 3.8 Globulin 3.3 Albumin/Globulin Ratio 1.1 Urine Color Urine Clarity Urine pH Ur Specific [place] Urine Protein Urine Glucose (UA) Urine Ketones Urine Blood Urine Nitrate Urine Bilirubin Urine Urobilinogen Ur Leukocyte Esterase Urine WBC (Auto) Urine RBC (Auto) Ur Squamous Epith Cells Urine Bacteria Hyaline Casts Ur Random Creatinine Ur Random Sodium Ur Random Phosphorus Ur Random Calcium Urine Microalbumin Urine Magnesium Urine Opiates Screen Urine Methadone Screen Ur Barbiturates Screen Ur Phencyclidine Scrn Ur Amphetamines Screen U Benzodiazepines Scrn U Oth Cocaine Metabols U Cannabinoids Screen Complement C3 Complement C4 06/13/18 06/13/18 06/13/18 10:21 16:50 16:50 WBC RBC Hgb Hct MCV MCH MCHC RDW Plt Count MPV Neut % (Auto) Lymph % (Auto) [place] % (Auto) Eos % (Auto) Baso % (Auto) Neut # (Auto) Lymph # (Auto) [place] # (Auto) Eos # (Auto) Baso # (Auto) D-Dimer, Quantitative Sodium Potassium Chloride Carbon Dioxide Anion Gap BUN Creatinine Est GFR ( Amer) Est GFR (Non-Af Amer) Random Glucose Calcium Total Bilirubin AST ALT Alkaline Phosphatase Total Creatine Kinase CK-MB (Mass) Troponin I NT-Pro-B Natriuret Pep Total Protein Albumin Globulin Albumin/Globulin Ratio Urine Color Yellow Urine Clarity Hazy Urine pH 6.0 Ur Specific [place] 1.026 Urine Protein 2+ H Urine Glucose (UA) Normal Urine Ketones Negative Urine Blood Negative Urine Nitrate Negative Urine Bilirubin Negative Urine Urobilinogen 2.0 Ur Leukocyte Esterase 3+ H Urine WBC (Auto) 46 H Urine RBC (Auto) 8 H Ur Squamous Epith Cells 12 H Urine Bacteria Rare Hyaline Casts 6-10 H Ur Random Creatinine 297.4 Ur Random Sodium 130 Ur Random Phosphorus 129.9 Ur Random Calcium 11.7 Urine Microalbumin 536.6 H Urine Magnesium 10.0 Urine Opiates Screen Negative Urine Methadone Screen Negative Ur Barbiturates Screen Negative Ur Phencyclidine Scrn Negative Ur Amphetamines Screen Negative U Benzodiazepines Scrn Negative U Oth Cocaine Metabols Negative U Cannabinoids Screen Negative Complement C3 Complement C4 06/13/18 06/13/18 06/13/18 16:50 16:53 19:02 WBC RBC Hgb Hct MCV MCH MCHC RDW Plt Count MPV Neut % (Auto) Lymph % (Auto) [place] % (Auto) Eos % (Auto) Baso % (Auto) Neut # (Auto) Lymph # (Auto) [place] # (Auto) Eos # (Auto) Baso # (Auto) D-Dimer, Quantitative Sodium Potassium Chloride Carbon Dioxide Anion Gap BUN Creatinine Est GFR ( Amer) Est GFR (Non-Af Amer) Random Glucose Calcium Total Bilirubin AST ALT Alkaline Phosphatase Total Creatine Kinase 353 H CK-MB (Mass) 1.63 Troponin I 0.0660 NT-Pro-B Natriuret Pep 2790 H Total Protein Albumin Globulin Albumin/Globulin Ratio Urine Color Yellow Urine Clarity Hazy Urine pH 5.0 Ur Specific [place] 1.025 Urine Protein 2+ H Urine Glucose (UA) Normal Urine Ketones Negative Urine Blood Negative Urine Nitrate Negative Urine Bilirubin Negative Urine Urobilinogen Normal Ur Leukocyte Esterase 1+ H Urine WBC (Auto) Urine RBC (Auto) Ur Squamous Epith Cells Urine Bacteria Hyaline Casts Ur Random Creatinine Ur Random Sodium Ur Random Phosphorus Ur Random Calcium Urine Microalbumin Urine Magnesium Urine Opiates Screen Urine Methadone Screen Ur Barbiturates Screen Ur Phencyclidine Scrn Ur Amphetamines Screen U Benzodiazepines Scrn U Oth Cocaine Metabols U Cannabinoids Screen Complement C3 127.0 Complement C4 48.7 H 06/14/18 00:16 WBC RBC Hgb Hct MCV MCH MCHC RDW Plt Count MPV Neut % (Auto) Lymph % (Auto) [place] % (Auto) Eos % (Auto) Baso % (Auto) Neut # (Auto) Lymph # (Auto) [place] # (Auto) Eos # (Auto) Baso # (Auto) D-Dimer, Quantitative Sodium Potassium Chloride Carbon Dioxide Anion Gap BUN Creatinine Est GFR ( Amer) Est GFR (Non-Af Amer) Random Glucose Calcium Total Bilirubin AST ALT Alkaline Phosphatase Total Creatine Kinase 297 H CK-MB (Mass) 1.37 Troponin I 0.0910 NT-Pro-B Natriuret Pep Total Protein Albumin Globulin Albumin/Globulin Ratio Urine Color Urine Clarity Urine pH Ur Specific [place] Urine Protein Urine Glucose (UA) Urine Ketones Urine Blood Urine Nitrate Urine Bilirubin Urine Urobilinogen Ur Leukocyte Esterase Urine WBC (Auto) Urine RBC (Auto) Ur Squamous Epith Cells Urine Bacteria Hyaline Casts Ur Random Creatinine Ur Random Sodium Ur Random Phosphorus Ur Random Calcium Urine Microalbumin Urine Magnesium Urine Opiates Screen Urine Methadone Screen Ur Barbiturates Screen Ur Phencyclidine Scrn Ur Amphetamines Screen U Benzodiazepines Scrn U Oth Cocaine Metabols U Cannabinoids Screen Complement C3 Complement C4
[2018-06-14] MEDS ORDERED: Caffeine Citrated **INJ** 20 MG/ML IV ONE (07:52)
[2018-06-14] MEDS: Labetalol 5mg/ml (4ml) IVP PRN ×2 (08:30→20:31)
[2018-06-14 08:34] LABS: BASO # 0.1 K/uL (0.0-0.2); BASO % 1.2 % (0.0-2.0); EOS # 0.9 K/uL (0.0-0.7); EOS % 11.7 % (0.0-4.0); HEMOGLOBIN 12.1 g/dL (12.0-18.0); LYMPH # 2.3 K/uL (1.0-4.3); LYMPH % 30.3 % (20.0-40.0); MEAN CELL VOLUME 79.2 fL (80.0-94.0); MEAN CORPUSCULAR HEMOGLOBIN 26.3 pg (27.0-31.0); MEAN CORPUSCULAR HGB CONC 33.2 g/dL (33.0-37.0); MEAN PLATELET VOLUME 7.4 fL (7.2-11.7); MONO # 0.4 K/uL (0.0-0.8); MONO % 5.1 % (0.0-10.0); NEUT # 3.9 K/uL (1.8-7.0); NEUT % 51.7 % (50.0-75.0); RBC 4.62 Mil/uL (4.40-5.90); RED CELL DISTRIBUTION WIDTH 16.5 % (11.5-14.5); WHITE BLOOD COUNT 7.5 K/uL (4.8-10.8)
[2018-06-14 08:48] LABS: ALB/GLOB RATIO 1.2 (1.0-2.1); ALBUMIN 3.7 g/dL (3.5-5.0); CALCIUM 8.6 mg/dl (8.6-10.4)
[2018-06-14 08:58] LABS: URINE 24 HOUR TOTAL PROTEIN 379.3 mg/24hr (42-225)
--- NOTE | 2018-06-14 10:10 | CP.PCM.PN ---
Subjective - Date & Time of Evaluation Date of Evaluation: 06/14/18 Time of Evaluation: 09:00 - Subjective Subjective: Progress note for Dr. Lerma. Seen and evaluated at bedside. Patient states he feels much better. Reports very mild SOB, but overall feels "80%" better. Denies chest pain, leg swelling, cough, nausea, vomiting, diarrhea. Objective - Vital Signs/Intake and Output Vital Signs (last 24 hours): Temp Pulse Resp BP Pulse Ox 97.8 F 89 20 166/113 H 96 06/14/18 08:17 06/14/18 08:17 06/14/18 08:17 06/14/18 09:59 06/14/18 08:17 - Medications Medications: Current Medications Amlodipine Besylate (Norvasc) 10 mg PO DAILY [facility] Last Admin: 06/14/18 09:59 Dose: 10 mg Carvedilol (Coreg) 12.5 mg PO BID [facility] Last Admin: 06/14/18 09:59 Dose: 12.5 mg Heparin Sodium (Porcine) (Heparin) 5,000 units SC Q12 [facility] Last Admin: 06/13/18 21:25 Dose: 5,000 units Hydralazine HCl (Apresoline) 10 mg PO QID [facility] Last Admin: 06/14/18 09:59 Dose: 10 mg Labetalol HCl (Trandate) 20 mg IVP Q6H PRN PRN Reason: Systolic Blood Pressure Last Admin: 06/14/18 08:30 Dose: 20 mg Nitroglycerin (Nitrostat Sl Tab) 0.4 mg SL Q5M PRN PRN Reason: Pain, severe (8-10) Sacubitril/Valsartan (Entresto 24 Mg-26 Mg) 1 tab PO BID [facility] - Labs Labs: 06/14/18 08:26 06/14/18 08:26 - Constitutional Appears: Non-toxic, No Acute Distress - Head Exam Head Exam: ATRAUMATIC, NORMOCEPHALIC - Eye Exam Eye Exam: EOMI, Normal appearance - ENT Exam ENT Exam: Mucous Membranes Moist - Neck Exam Neck Exam: Full ROM, Normal Inspection - Respiratory Exam Respiratory Exam: Clear to Ausculation Bilateral. absent: Rales, Rhonchi, Wheezes, Respiratory Distress - Cardiovascular Exam Cardiovascular Exam: REGULAR RHYTHM, +S1, +S2 - GI/Abdominal Exam GI & Abdominal Exam: Soft, Normal Bowel Sounds. absent: Distended, Firm, Guar ding, Rigid, Tenderness - Extremities Exam Extremities Exam: Full ROM, Normal Inspection. absent: Calf Tenderness, Pedal Edema - Neurological Exam Neurological Exam: Alert, Awake, Oriented x3 - Psychiatric Exam Psychiatric exam: Normal Affect, Normal Mood - Skin Skin Exam: Dry, Normal Color, Warm Assessment and Plan - Assessment and Plan (Free Text) Plan: CHF (HFrEF) exacerbation Observation, Telemetry ECHO (02/2018): LV mildly dilated; LV fxn markedly reduced EF ~30%, Mild to moderate concentric LVH; left atrial volume index increased; Moderate mitral regurgitation; Marked pulm HTN CXR (06/13/18): IMPRESSION: Mild to moderate interstitial prominence may reflect infection or edema. EKG (06/13/18): NSR @ 83 bpm; RBBB, Non-specific T wave changes (V5/V6), prolonged Qtc Trop negative x 3 Consult: Dr Cross, Regional Sales Executive - help appreciated - ECHO prelim: 35-40% EF, no pulm HTN, no thrombus, follow up official read - stress test rescheduled for 06/15/18 to allow for clearance of V/Q scan dye HOLD Entresto 24/26mg 1 tab PO BID Coreg 6.25 mg PO BID 1 Liter fluid restriction Head of bed 30 degrees Measure weight daily f/u BNP AM Chest pain, R/O ACS Trop negative x 3 EKG (06/13/18): NSR @ 83 bpm, T-waves inversion in V5/6, No acute ST changes, prolonged Qtc Elevated D-dimer D-dimer 286 CTA C/I due to elevated Cr VQ scan (06/13/18): low probability of PE. Venous doppler LE: negative for DVT bilateral HTN urgency 180/132 on admission; 182/142 on repeat ED - given Norvasc 10mg in ED; Labetalol 10mg IV once in ED Coreg 12.5 mg PO BID Hydralazine 10mg PO QID Amlodipine 10mg PO Daily Labetalol 20mg IVP Q6H PRN SBP >180 Restart Entresto 24/26mg 1 tab PO BID per Nephro CKD (stage 3), Proteinuria BUN/Cr 25/1.9, GFR 49, UA 2+ protein - Cr in 02/21 baseline: 1.8 Consult: Dr. South, Manager Pharmaceutical - help appreciated - f/u repeat UA, microalbumin:Cr ratio, Protein:Cr ratio, Urine Electrolytes, - Renal US unremarkable - f/u 24 hour urine collection - Kidney biopsy likely Friday 06/16 Abnormal UA; Proteinuria UA (06/13/18): Protein 2+, LE 3+, WBC 46, RBC 8, Sq Epithlial 12, Hyaline Casts 6- 10 - not clean cath; repeat protein 2+, LE 1+ - Pt Asymptomatic Prolonged QTc Initial EKG showed QTc of 483 Avoid QT prolonging agents (i.e. Zofran) Monitor K+ and Mg Vitamin D deficiency Ergocalciferol 1 cap PO Q7D PPX VTE: Heparin 5000u Q12H GI PPX: not indicated at this time SCDs Chicken Hatchery Helper referral Case discussed with Dr. Maria Guadalupe Ziegler PGY-1
--- NOTE | 2018-06-14 10:35 | CP.PCM.PN ---
<Hang Bradley - Last Filed: 06/14/18 17:08> Subjective - Date & Time of Evaluation Date of Evaluation: 06/14/18 Time of Evaluation: 10:34 - Subjective Subjective: Cardiology Consult Note for Dr. Cross Patient seen and examined at bedside. No overnight events reported. He denies any chest pain, SOB, or palpitations. Objective - Vital Signs/Intake and Output Vital Signs (last 24 hours): Temp Pulse Resp BP Pulse Ox 97.8 F 89 20 166/113 H 96 06/14/18 08:17 06/14/18 08:17 06/14/18 08:17 06/14/18 09:59 06/14/18 08:17 - Medications Medications: Current Medications Amlodipine Besylate (Norvasc) 10 mg PO DAILY [facility] Last Admin: 06/14/18 09:59 Dose: 10 mg Carvedilol (Coreg) 12.5 mg PO BID [facility] Last Admin: 06/14/18 09:59 Dose: 12.5 mg Heparin Sodium (Porcine) (Heparin) 5,000 units SC Q12 [facility] Last Admin: 06/13/18 21:25 Dose: 5,000 units Hydralazine HCl (Apresoline) 10 mg PO QID [facility] Last Admin: 06/14/18 09:59 Dose: 10 mg Labetalol HCl (Trandate) 20 mg IVP Q6H PRN PRN Reason: Systolic Blood Pressure Last Admin: 06/14/18 08:30 Dose: 20 mg Nitroglycerin (Nitrostat Sl Tab) 0.4 mg SL Q5M PRN PRN Reason: Pain, severe (8-10) Sacubitril/Valsartan (Entresto 24 Mg-26 Mg) 1 tab PO BID [facility] - Labs Labs: 06/14/18 08:26 06/14/18 08:26 - Constitutional Appears: Well, Non-toxic, No Acute Distress - Head Exam Head Exam: ATRAUMATIC, NORMAL INSPECTION, NORMOCEPHALIC - Eye Exam Eye Exam: EOMI, Normal appearance - ENT Exam ENT Exam: Mucous Membranes Moist - Respiratory Exam Respiratory Exam: Clear to Ausculation Bilateral. absent: Accessory Muscle Use - Cardiovascular Exam Cardiovascular Exam: RRR, +S1, +S2 Additional comments: Decreased Heart Sounds. - GI/Abdominal Exam GI & Abdominal Exam: Soft, Normal Bowel Sounds. absent: Tenderness - Extremities Exam Extremities Exam: absent: Pedal Edema - Psychiatric Exam Psychiatric exam: Normal Affect, Normal Mood - Skin Skin Exam: Dry, Intact, Normal Color, Warm Assessment and Plan - Assessment and Plan (Free Text) Assessment: 33 yo AA M with PMH of HTN, pulmonary HTN, CHF (systolic), CKD (stage III) and recent admission to [facility] in 02/2018 for pneumonia who, presented for shortness of breath, and was found to be in hypertensive urgency with suspected CHF exacerbation. Cardiology Consulted for evaluation and treatment of HFrEF. Plan: Acute on Chronic HFrEF ECHO - To be Reviewed Stress Test - Scheduled for tomorrow Dispo: WIll continue to follow Patient discussed with Dr. Tay Bradley, PGY-2 <Willi Cross - Last Filed: 06/15/18 05:36> Objective - Vital Signs/Intake and Output Vital Signs (last 24 hours): Temp Pulse Resp BP Pulse Ox 97.8 F 75 18 135/82 98 06/14/18 23:42 06/14/18 23:42 06/14/18 23:42 06/14/18 23:42 06/14/18 23:42 Intake and Output: 06/14/18 06/15/18 18:59 06:59 Intake Total 680 Output Total 250 Balance 430 - Medications Medications: Current Medications Amlodipine Besylate (Norvasc) 10 mg PO DAILY [facility] Last Admin: 06/14/18 09:59 Dose: 10 mg Carvedilol (Coreg) 12.5 mg PO BID [facility] Last Admin: 06/14/18 18:00 Dose: 12.5 mg Chlorthalidone (Hygroton) 25 mg PO DAILY [facility] Last Admin: 06/14/18 17:24 Dose: 25 mg Ergocalciferol (Drisdol 50,000 Intl Units Cap) 1 cap PO Q7D [facility] Last Admin: 06/14/18 16:31 Dose: 1 cap Heparin Sodium (Porcine) (Heparin) 5,000 units SC Q12 [facility] Last Admin: 06/14/18 21:21 Dose: Not Given Hydralazine HCl (Apresoline) 10 mg PO QID [facility] Last Admin: 06/14/18 21:21 Dose: 10 mg Labetalol HCl (Trandate) 20 mg IVP Q6H PRN PRN Reason: Systolic Blood Pressure Last Admin: 06/14/18 20:31 Dose: 20 mg Nitroglycerin (Nitrostat Sl Tab) 0.4 mg SL Q5M PRN PRN Reason: Pain, severe (8-10) Sacubitril/Valsartan (Entresto 24 Mg-26 Mg) 1 tab PO BID [facility] Last Admin: 06/14/18 17:25 Dose: 1 tab - Labs Labs: 06/14/18 08:26 06/14/18 08:26 Assessment and Plan - Assessment and Plan (Free Text) Plan: Patient seen and personally evaluated by me. Plan of care d/w the medical cost consultant and as documented
--- NOTE | 2018-06-14 15:24 | CARD ---
APPROVED REPORT Date of service: 06/14/2018 EXAM: LIMITED Two-dimensional and M-mode echocardiogram with Doppler and color Doppler. Other Information Quality : GoodRhythm : INDICATION Dyspnea LV Function:Systolic compare EF vs FEB 2018 study RISK FACTORS Hypertension 2D DIMENSIONS IVSd1.2 (0.7-1.1cm)LVDd6.2 (3.9-5.9cm) PWd1.4 (0.7-1.1cm)LVDs5.0 (2.5-4.0cm) FS (%) 19.2 %LVEF (%)38.8 (>50%) LVEF (Dubon's)40.19 % M-Mode DIMENSIONS IVSd1.27 (0.7-1.1cm)LVDd6.73 (4.0-5.6cm) PWd1.15 (0.7-1.1cm)FS (%) 23 % LVDs5.20 (2.0-3.8cm)LVEF (%)44 (>50%) Mitral Valve E/A ratio0.0 TDI E/Lateral E'0.0E/Medial E'0.0 Tricuspid Valve TR Peak [id number]/sTR Peak Gr.[id number] LEFT VENTRICLE The left ventricle is mildly dilated. There is mild to moderate concentric left ventricular hypertrophy. Left ventricle systolic function is moderately impaired. The Ejection Fraction is - 40%. There is global hypokinesis of the left ventricle. RIGHT VENTRICLE The right ventricle is normal size. The right ventricular systolic function is normal. ATRIA The left atrium is moderately dilated. The right atrium is mildly dilated. AORTIC VALVE The aortic valve is normal in structure. No aortic regurgitation is present. There is no aortic valvular stenosis. MITRAL VALVE The mitral valve is normal in structure. There is no mitral valve regurgitation noted. TRICUSPID VALVE The tricuspid valve is normal in structure. There is mild tricuspid regurgitation. Right ventricular systolic pressure is estimated at - 37 mmHg. There is mild pulmonary hypertension. PULMONIC VALVE The pulmonary valve is normal in structure. There is no pulmonic valvular regurgitation. GREAT VESSELS The aortic root is normal in size. The IVC was not visualized. PERICARDIAL EFFUSION There is no pericardial effusion. <Conclusion> The left ventricle is mildly dilated with mild to moderate concentric hypertrophy. There is global hypokinesis of the left ventricle. Left ventricle systolic function is moderately impaired. The Ejection Fraction is - 40%. The right ventricular systolic function is normal. There is mild tricuspid regurgitation. Right ventricular systolic pressure is estimated at - 37 mmHg compatible with mild pulmonary hypertension. There is no pericardial effusion.
[2018-06-14] MEDS ORDERED: Ergocalciferol 50,000 Intl Units Cap PO SCH (16:00)
--- NOTE | 2018-06-14 16:41 | CT ---
Date of service: 06/14/2018 CT chest without IV contrast Indication: chf, shortness of breath Technique: Contiguous axial images were obtained through the chest without intravenous contrast enhancement. Sagittal and coronal reconstructions were generated and reviewed. This CT exam was performed using 1 or more of the following dose reduction techniques: Automated exposure control, adjustment of the MAA and/or kV according to patient size, and/or use of iterative reconstruction technique. Radiation dose (DLP): 757.38 MGy-cm. Comparison: Chest x-ray performed 1225 Findings: Visualized portions of the inferior thyroid gland appear unremarkable. The unenhanced mediastinal and hilar vascular structures appear grossly unremarkable. Cardiomegaly. Sub cm mediastinal/prevascular adenopathy, nonspecific. Numerous scattered tiny solid and ground-glass pulmonary opacities most prominent within the left greater than right upper lobes, measuring up to approximately 9 mm in the left upper lobe (series 4, image 29). Previously demonstrated bilateral multifocal infiltrates have resolved. No focal consolidation. No pleural effusion. No pneumothorax. Limited visualization of the noncontrast upper abdomen appears grossly unremarkable. Bilateral gynecomastia. No acute osseous abnormality is detected. Impression: Cardiomegaly. Sub cm mediastinal/prevascular adenopathy, nonspecific. Overall interval resolution of previously demonstrated extensive bilateral multifocal infiltrates. There are now numerous scattered tiny solid and ground-glass pulmonary opacities most prominent within the left greater than right upper lobes measuring up to approximately 9 mm in the left upper lobe. Infectious or inflammatory etiologies are favored. Recommend clinical correlation and CT follow-up at 3-6 months.
--- NOTE | 2018-06-14 16:56 | CARD ---
APPROVED REPORT Date of service: 06/13/2018 EKG Measurement Heart [id number] <Conclusion> Normal sinus rhythm Possible Left atrial enlargement Incomplete right bundle branch block Left ventricular hypertrophy with repolarization abnormality Prolonged QT Abnormal ECG
--- NOTE | 2018-06-14 16:57 | CARD ---
APPROVED REPORT Date of service: 06/13/2018 EKG Measurement Heart [id number] <Conclusion> Normal sinus rhythm Right atrial enlargement Incomplete right bundle branch block LVH with repolarization abnormality. T wave abnormality, consider inferolateral ischemia Prolonged QT Abnormal ECG
--- NOTE | 2018-06-14 17:03 | CP.PCM.PN ---
<Todd Farah - Last Filed: 06/14/18 16:59> Subjective - Date & Time of Evaluation Date of Evaluation: 06/14/18 Time of Evaluation: 07:30 - Subjective Subjective: Nephro Progress note for Dr. Akosua Farah DO, IM PGY-3 Patient seen and examined at bedside. No new acute complaints at this time, feeling better overall. Denies chest pain, shortness of breath, dysuria, hematuria. Reports completed 24hr urine collection, but this was incorrect, instructed patient and nursing to continue with urine collection. Objective - Vital Signs/Intake and Output Vital Signs (last 24 hours): Temp Pulse Resp BP Pulse Ox 97.8 F 83 20 171/121 H 97 06/14/18 15:30 06/14/18 15:30 06/14/18 15:30 06/14/18 15:30 06/14/18 15:30 Intake and Output: 06/14/18 06/14/18 06:59 18:59 Intake Total 680 Output Total 250 Balance 430 - Medications Medications: Current Medications Amlodipine Besylate (Norvasc) 10 mg PO DAILY [facility] Last Admin: 06/14/18 09:59 Dose: 10 mg Carvedilol (Coreg) 12.5 mg PO BID [facility] Last Admin: 06/14/18 09:59 Dose: 12.5 mg Chlorthalidone (Hygroton) 25 mg PO DAILY [facility] Ergocalciferol (Drisdol 50,000 Intl Units Cap) 1 cap PO Q7D [facility] Last Admin: 06/14/18 16:31 Dose: 1 cap Heparin Sodium (Porcine) (Heparin) 5,000 units SC Q12 [facility] Last Admin: 06/13/18 21:25 Dose: 5,000 units Hydralazine HCl (Apresoline) 10 mg PO QID [facility] Last Admin: 06/14/18 13:40 Dose: 10 mg Labetalol HCl (Trandate) 20 mg IVP Q6H PRN PRN Reason: Systolic Blood Pressure Last Admin: 06/14/18 08:30 Dose: 20 mg Nitroglycerin (Nitrostat Sl Tab) 0.4 mg SL Q5M PRN PRN Reason: Pain, severe (8-10) Sacubitril/Valsartan (Entresto 24 Mg-26 Mg) 1 tab PO BID [facility] - Labs Labs: 06/14/18 08:26 06/14/18 08:26 - Additional Findings Additional findings: - Constitutional Appears: Non-toxic, No Acute Distress - Head Exam Head Exam: ATRAUMATIC, NORMAL INSPECTION, NORMOCEPHALIC - Eye Exam Eye Exam: EOMI, Normal appearance. absent: Conjunctival injection, Scleral icterus Pupil Exam: absent: Irregular, Unequal - ENT Exam ENT Exam: Mucous Membranes Moist - Neck Exam Neck exam: Positive for: Full Rom, Normal Inspection. Negative for: Lymphadenopathy - Respiratory Exam Respiratory Exam: Clear to Auscultation Bilateral, NORMAL BREATHING PATTERN. absent: Accessory Muscle Use, Chest Wall Tenderness, Decreased Breath Sounds, Rales, Rhonchi, Wheezes - Cardiovascular Exam Cardiovascular Exam: Tachycardia, REGULAR RHYTHM, JVD (2-3cm above clavicle, no hepatojugular reflux appreciated), +S1, +S2. absent: Bradycardia, Irregular Rhythm - GI/Abdominal Exam GI & Abdominal Exam: Normal Bowel Sounds, Soft. absent: Diminished Bowel Sounds, Distended, Firm, Guarding, Hyperactive Bowel Sounds, Hypoactive Bowel Sounds, Organomegaly, Pulsatile Mass, Rigid, Tenderness - Extremities Exam Extremities exam: Positive for: normal capillary refill, normal inspection, pedal pulses present. Negative for: calf tenderness, joint swelling, pedal edema, tenderness - Neurological Exam awake and alert, ambulating in room without issue moving all extremities spontaneously and on command follows all commands appropriately - Psychiatric Exam Psychiatric exam: Normal Affect, Normal Mood - Skin Skin Exam: Dry, Intact, Normal Color, Warm Assessment and Plan - Assessment and Plan (Free Text) Assessment: This is a 33 yo AA M with PMH of HTN, pulmonary HTN, CHF (systolic), CKD (stage III) and recent admission to [facility] in 02/2018 for pneumonia who, presented for shortness of breath, and was found to be in hypertensive urgency with suspected CHF exacerbation. Nephro was consulted for CKD. Plan: 1) acutely worsening shortness of breath, suspect CHF exacerbation 2) Hypertensive urgency 3) CKD, etiology unclear 4) Medication non-compliance x1 month 5) HFrEF, 30% on last Echo 6) Pulm HTN -Cr remains 1.9, baseline based on prior admissions appears to be 1.6-1.8, so not STALIN overlying Repeat UA and prior UAs with 2+ protein, suggesting proteinuric renal disorder Need to rule to vasculitis, HALLEY and ANCA pending, complement unremarkable will likely need renal biospy (discussed with pt and primary team), holding ASA Urine electrolytes, microalbumin, creatinine, and protein ordered, f/u Renal US unremarkable RPR and GC/chlamydia pending BP remains elevated today, Coreg dose increased and can restart Entresto; if BP remains elevated can consider starting Chlorthalidone 25mg daily -Pending Cardiac stress test tomorrow as per primary team Patient seen and discussed with attending, Dr. South. <Jacky South - Last Filed: 06/15/18 08:55> Objective - Vital Signs/Intake and Output Vital Signs (last 24 hours): Temp Pulse Resp BP Pulse Ox 97.8 F 77 20 164/113 H 99 06/15/18 06:06 06/15/18 07:31 06/15/18 07:31 06/15/18 07:31 06/15/18 07:31 Intake and Output: 06/15/18 06/15/18 06:59 18:59 Output Total 1200 Balance -1200 - Medications Medications: Current Medications Amlodipine Besylate (Norvasc) 10 mg PO DAILY [facility] Last Admin: 06/15/18 07:34 Dose: 10 mg Carvedilol (Coreg) 25 mg PO BID [facility] Chlorthalidone (Hygroton) 25 mg PO DAILY [facility] Last Admin: 06/14/18 17:24 Dose: 25 mg Ergocalciferol (Drisdol 50,000 Intl Units Cap) 1 cap PO Q7D [facility] Last Admin: 06/14/18 16:31 Dose: 1 cap Heparin Sodium (Porcine) (Heparin) 5,000 units SC Q12 [facility] Last Admin: 06/14/18 21:21 Dose: Not Given Hydralazine HCl (Apresoline) 10 mg PO QID [facility] Last Admin: 06/14/18 21:21 Dose: 10 mg Labetalol HCl (Trandate) 20 mg IVP Q6H PRN PRN Reason: Systolic Blood Pressure Last Admin: 06/14/18 20:31 Dose: 20 mg Nitroglycerin (Nitrostat Sl Tab) 0.4 mg SL Q5M PRN PRN Reason: Pain, severe (8-10) Sacubitril/Valsartan (Entresto 24 Mg-26 Mg) 1 tab PO BID [facility] Last Admin: 06/14/18 17:25 Dose: 1 tab - Labs Labs: 06/15/18 07:03 06/15/18 07:03 Attending/Attestation - Attestation I have personally seen and examined this patient.: Yes I have fully participated in the care of the patient.: Yes I have reviewed all pertinent clinical information, including history, physical exam and plan: Yes Notes (Text): Patient seen and examined; I agree with the resident's note as above with the following additions/edits: 33 yo M w/ newly diagnosed systolic CHF (02/2018) and CKD, admitted with hypert ensive urgency after presenting with dyspnea; Dyspnea resolved after better BP control (although BP still elevated); concern for an underlying process that can explain multi-organ involvement (heart, lungs, kidneys); CT chest obtained for better eval since previous pulm infiltrates resolved; showing ground glass opacities; direct urine microscopy showed some pyuria with one questionable cellular cast; overall, patient needs tissue diagnosis and would benefit from renal biopsy to which he is amenable; HTN still uncontrolled; coreg increased to 12.5 mg bid, resuming entresto, will add chlorthalidone; Otherwise, no signs/symptoms of CHF currently; nevertheless, will benefit from diuretic as above; awaiting stress test tomorrow; -Will plan for renal biopsy; -Avoid nephrotoxic agents; -f/u 24 hr urine collection for proteinuria; -f/u serologic workup for proteinuric kidney disease;
[2018-06-14] MEDS: Sacubitril/Valsartan 24-26mg Tab PO SCH (17:25)
[2018-06-15 07:23] LABS: BASO # 0.1 K/uL (0.0-0.2); BASO % 1.4 % (0.0-2.0); EOS # 0.8 K/uL (0.0-0.7); EOS % 11.9 % (0.0-4.0); HEMOGLOBIN 12.7 g/dL (12.0-18.0); LYMPH # 2.1 K/uL (1.0-4.3); MEAN CELL VOLUME 79.5 fL (80.0-94.0); MEAN CORPUSCULAR HEMOGLOBIN 26.8 pg (27.0-31.0); MEAN CORPUSCULAR HGB CONC 33.7 g/dL (33.0-37.0); MEAN PLATELET VOLUME 7.5 fL (7.2-11.7); MONO # 0.4 K/uL (0.0-0.8); NEUT # 3.6 K/uL (1.8-7.0); NEUT % 50.7 % (50.0-75.0); NRBC % 0.1 % (0.0-2.0); RBC 4.75 Mil/uL (4.40-5.90); RED CELL DISTRIBUTION WIDTH 16.6 % (11.5-14.5)
[2018-06-15 07:32] VITALS: RESP 20
[2018-06-15 07:34] LABS: ALB/GLOB RATIO 1.2 (1.0-2.1); ALBUMIN 3.8 g/dL (3.5-5.0); CALCIUM 8.8 mg/dl (8.6-10.4)
[2018-06-15] MEDS ORDERED: Caffeine Citrated **INJ** 20 MG/ML IV ONE (07:41)
[2018-06-15] MEDS: Sacubitril/Valsartan 24-26mg Tab PO SCH ×2 (09:31→17:40)
--- NOTE | 2018-06-15 11:37 | CP.PCM.PN ---
<Todd Farah - Last Filed: 06/15/18 11:34> Subjective - Date & Time of Evaluation Date of Evaluation: 06/15/18 Time of Evaluation: 07:40 - Subjective Subjective: Nephro Progress note for Dr. Akosua Farah DO, PGY-3 Patient seen and examined at bedside. No new acute complaints at this time, feeling unchanged today. Denies chest pain, shortness of breath, dysuria, hematuria. Continuing urine collection for 24hr collection. BP remains high today, started on Chlorithalidone. Pending stress test today. Objective - Vital Signs/Intake and Output Vital Signs (last 24 hours): Temp Pulse Resp BP Pulse Ox 97.8 F 76 20 156/112 H 99 06/15/18 06:06 06/15/18 09:30 06/15/18 07:31 06/15/18 10:41 06/15/18 07:31 Intake and Output: 06/15/18 06/15/18 06:59 18:59 Output Total 1200 Balance -1200 - Medications Medications: Current Medications Amlodipine Besylate (Norvasc) 10 mg PO DAILY [facility] Last Admin: 06/15/18 09:31 Dose: Not Given Carvedilol (Coreg) 25 mg PO BID [facility] Last Admin: 06/15/18 09:31 Dose: 25 mg Chlorthalidone (Hygroton) 25 mg PO DAILY [facility] Last Admin: 06/15/18 09:31 Dose: 25 mg Ergocalciferol (Drisdol 50,000 Intl Units Cap) 1 cap PO Q7D [facility] Last Admin: 06/14/18 16:31 Dose: 1 cap Heparin Sodium (Porcine) (Heparin) 5,000 units SC Q12 [facility] Last Admin: 06/15/18 09:31 Dose: 5,000 units Hydralazine HCl (Apresoline) 10 mg PO QID [facility] Last Admin: 06/15/18 09:31 Dose: 10 mg Labetalol HCl (Trandate) 20 mg IVP Q6H PRN PRN Reason: Systolic Blood Pressure Last Admin: 06/14/18 20:31 Dose: 20 mg Nitroglycerin (Nitrostat Sl Tab) 0.4 mg SL Q5M PRN PRN Reason: Pain, severe (8-10) Sacubitril/Valsartan (Entresto 24 Mg-26 Mg) 1 tab PO BID [facility] Last Admin: 06/15/18 09:31 Dose: 1 tab - Labs Labs: 06/15/18 07:03 06/15/18 07:03 - Additional Findings Additional findings: - Constitutional Appears: Non-toxic, No Acute Distress - Head Exam Head Exam: ATRAUMATIC, NORMAL INSPECTION, NORMOCEPHALIC - Eye Exam Eye Exam: EOMI, Normal appearance. absent: Conjunctival injection, Scleral icterus Pupil Exam: absent: Irregular, Unequal - ENT Exam ENT Exam: Mucous Membranes Moist - Neck Exam Neck exam: Positive for: Full Rom, Normal Inspection. Negative for: Lymphadenopathy - Respiratory Exam Respiratory Exam: Clear to Auscultation Bilateral, NORMAL BREATHING PATTERN. absent: Accessory Muscle Use, Chest Wall Tenderness, Decreased Breath Sounds, Rales, Rhonchi, Wheezes - Cardiovascular Exam Cardiovascular Exam: RRR, +S1, +S2. absent: Tachycardia, Bradycardia, Irregular Rhythm - GI/Abdominal Exam GI & Abdominal Exam: Normal Bowel Sounds, Soft. - Extremities Exam Extremities exam: Positive for: normal capillary refill, normal inspection, pedal pulses present. Negative for: calf tenderness, joint swelling, pedal edema, tenderness - Neurological Exam awake and alert, ambulating in room without issue moving all extremities spontaneously and on command follows all commands appropriately - Psychiatric Exam Psychiatric exam: Normal Affect, Normal Mood - Skin Skin Exam: Dry, Intact, Normal Color, Warm Assessment and Plan - Assessment and Plan (Free Text) Assessment: This is a 33 yo AA M with PMH of HTN, pulmonary HTN, CHF (systolic), CKD (stage III) and recent admission to [facility] in 02/2018 for pneumonia who, presented for shortness of breath, and was found to be in hypertensive urgency with suspected CHF exacerbation. Nephro was consulted for CKD. Plan: 1) acutely worsening shortness of breath, suspect CHF exacerbation 2) Hypertensive urgency 3) CKD, etiology unclear 4) Medication non-compliance x1 month 5) HFrEF, 30% on last Echo 6) Pulm HTN -Cr remains 1.9, baseline based on prior admissions appears to be 1.6-1.8, so not STALIN overlying Repeat UA and prior UAs with 2+ protein, suggesting proteinuric renal disorder Need to rule to vasculitis, HALLEY and ANCA pending, complement unremarkable Will likely need renal biospy (discussed with pt and primary team), holding ASA Urine electrolytes: Na 130, Phos 129, Ca 11.7, Mg 10; Urine Microalbumin 536 Still pending results of 24hr urine collection (to be completed today) Renal US unremarkable CT Chest: cardiomegaly, nonspecific mediastinal/prevascular adenopathy, numerous small solid/ground-glass pulm opacities (L>R) Echo obtained, notable for EF 40%, global LV hypokinesis, mild TR, mild pulm HTN RPR negative, GC/chlamydia pending BP remains elevated today, started on Chlorthalidone, coreg increased furt her, will f/u and adjust further as needed -Pending Cardiac stress test today Patient seen and discussed with attending, Dr. South. <Jacky South - Last Filed: 06/16/18 08:44> Objective - Vital Signs/Intake and Output Vital Signs (last 24 hours): Temp Pulse Resp BP Pulse Ox 98.2 F 81 20 148/95 H 98 06/16/18 07:00 06/16/18 07:00 06/16/18 07:00 06/16/18 07:00 06/16/18 07:00 Intake and Output: 06/16/18 06/16/18 06:59 18:59 Intake Total 550 Balance 550 - Medications Medications: Current Medications Amlodipine Besylate (Norvasc) 10 mg PO DAILY [facility] Last Admin: 06/15/18 09:31 Dose: Not Given Carvedilol (Coreg) 25 mg PO BID [facility] Last Admin: 06/15/18 17:40 Dose: 25 mg Chlorthalidone (Hygroton) 25 mg PO DAILY [facility] Last Admin: 06/15/18 09:31 Dose: 25 mg Ergocalciferol (Drisdol 50,000 Intl Units Cap) 1 cap PO Q7D [facility] Last Admin: 06/14/18 16:31 Dose: 1 cap Heparin Sodium (Porcine) (Heparin) 5,000 units SC Q12 [facility] Last Admin: 06/15/18 23:00 Dose: Not Given Hydralazine HCl (Apresoline) 25 mg PO QID [facility] Last Admin: 06/15/18 21:23 Dose: 25 mg Labetalol HCl (Trandate) 20 mg IVP Q6H PRN PRN Reason: Systolic Blood Pressure Last Admin: 06/14/18 20:31 Dose: 20 mg Nitroglycerin (Nitrostat Sl Tab) 0.4 mg SL Q5M PRN PRN Reason: Pain, severe (8-10) Sacubitril/Valsartan (Entresto 24 Mg-26 Mg) 1 tab PO BID [facility] Last Admin: 06/15/18 17:40 Dose: 1 tab - Labs Labs: 06/16/18 06:30 06/16/18 06:30 Attending/Attestation - Attestation I have personally seen and examined this patient.: Yes I have fully participated in the care of the patient.: Yes I have reviewed all pertinent clinical information, including history, physical exam and plan: Yes Notes (Text): Patient seen and examined; I agree with the resident's note as above with the following additions/edits: Patient with newly diagnosed systolic CHF and CKD, admitted with hypertensive urgency; Renal function stable but concern for an underlying process that could explain CKD, CHF and ground glass opacifications on imaging (sarcoidosis?); needs renal biopsy, which will have to be done as outpatient for logistical reasons; patient is amenable for outpatient f/u; BP better controlled but still not at goal; increasing coreg to 25 mg bid and hydralazine to 25 mg qid; will increase entresto if needed; CHF status stable; will keep on chlorthalidone 25 mg daily;
--- NOTE | 2018-06-15 12:48 | CP.PCM.PN ---
<Hang Bradley - Last Filed: 06/15/18 16:42> Subjective - Date & Time of Evaluation Date of Evaluation: 06/15/18 Time of Evaluation: 09:30 - Subjective Subjective: Cardiology Progress Note for Dr. Cross Patient seen and examined at bedside. He offers no complaints except that he is hungry. 12 point ROS negative unless stated. Objective - Vital Signs/Intake and Output Vital Signs (last 24 hours): Temp Pulse Resp BP Pulse Ox 97.8 F 76 20 156/112 H 99 06/15/18 06:06 06/15/18 09:30 06/15/18 07:31 06/15/18 10:41 06/15/18 07:31 Intake and Output: 06/15/18 06/15/18 06:59 18:59 Output Total 1200 Balance -1200 - Medications Medications: Current Medications Amlodipine Besylate (Norvasc) 10 mg PO DAILY [facility] Last Admin: 06/15/18 09:31 Dose: Not Given Carvedilol (Coreg) 25 mg PO BID [facility] Last Admin: 06/15/18 09:31 Dose: 25 mg Chlorthalidone (Hygroton) 25 mg PO DAILY [facility] Last Admin: 06/15/18 09:31 Dose: 25 mg Ergocalciferol (Drisdol 50,000 Intl Units Cap) 1 cap PO Q7D [facility] Last Admin: 06/14/18 16:31 Dose: 1 cap Heparin Sodium (Porcine) (Heparin) 5,000 units SC Q12 [facility] Last Admin: 06/15/18 09:31 Dose: 5,000 units Hydralazine HCl (Apresoline) 10 mg PO QID [facility] Last Admin: 06/15/18 09:31 Dose: 10 mg Labetalol HCl (Trandate) 20 mg IVP Q6H PRN PRN Reason: Systolic Blood Pressure Last Admin: 06/14/18 20:31 Dose: 20 mg Nitroglycerin (Nitrostat Sl Tab) 0.4 mg SL Q5M PRN PRN Reason: Pain, severe (8-10) Sacubitril/Valsartan (Entresto 24 Mg-26 Mg) 1 tab PO BID [facility] Last Admin: 06/15/18 09:31 Dose: 1 tab - Labs Labs: 06/15/18 07:03 06/15/18 07:03 - Additional Findings Additional findings: - Constitutional Appears: Well, Non-toxic, No Acute Distress - Head Exam Head Exam: ATRAUMATIC, NORMAL INSPECTION, NORMOCEPHALIC - Eye Exam Eye Exam: EOMI, Normal appearance - ENT Exam ENT Exam: Mucous Membranes Moist - Respiratory Exam Respiratory Exam: Clear to Ausculation Bilateral. absent: Accessory Muscle Use - Cardiovascular Exam Cardiovascular Exam: RRR, +S1, +S2 Additional comments: Decreased Heart Sounds. - GI/Abdominal Exam GI & Abdominal Exam: Soft, Normal Bowel Sounds. absent: Tenderness - Extremities Exam Extremities Exam: absent: Pedal Edema - Psychiatric Exam Psychiatric exam: Normal Affect, Normal Mood - Skin Skin Exam: Dry, Intact, Normal Color, Warm Assessment and Plan - Assessment and Plan (Free Text) Assessment: 33 yo AA M with PMH of HTN, pulmonary HTN, CHF (systolic), CKD (stage III) and recent admission to [facility] in 02/2018 for pneumonia who, presented for shortness of breath, and was found to be in hypertensive urgency with suspected CHF exacerbation. Cardiology Consulted for evaluation and treatment of HFrEF. Plan: Acute on Chronic HFrEF ECHO (06/14/18) EF=40%, Mild TR, mild Pulm HTN Stress Test - Will Review Mgmt: Cont. Medical management. Dispo: WIll continue to follow Patient discussed with Dr. Tay Bradley, PGY-2 <Willi Cross - Last Filed: 06/15/18 22:12> Objective - Vital Signs/Intake and Output Vital Signs (last 24 hours): Temp Pulse Resp BP Pulse Ox 97.5 F L 75 20 150/83 97 06/15/18 15:00 06/15/18 15:00 06/15/18 15:00 06/15/18 21:26 06/15/18 15:00 - Medications Medications: Current Medications Amlodipine Besylate (Norvasc) 10 mg PO DAILY [facility] Last Admin: 06/15/18 09:31 Dose: Not Given Carvedilol (Coreg) 25 mg PO BID [facility] Last Admin: 06/15/18 17:40 Dose: 25 mg Chlorthalidone (Hygroton) 25 mg PO DAILY [facility] Last Admin: 06/15/18 09:31 Dose: 25 mg Ergocalciferol (Drisdol 50,000 Intl Units Cap) 1 cap PO Q7D [facility] Last Admin: 06/14/18 16:31 Dose: 1 cap Heparin Sodium (Porcine) (Heparin) 5,000 units SC Q12 [facility] Last Admin: 06/15/18 09:31 Dose: 5,000 units Hydralazine HCl (Apresoline) 25 mg PO QID [facility] Last Admin: 06/15/18 21:23 Dose: 25 mg Labetalol HCl (Trandate) 20 mg IVP Q6H PRN PRN Reason: Systolic Blood Pressure Last Admin: 06/14/18 20:31 Dose: 20 mg Nitroglycerin (Nitrostat Sl Tab) 0.4 mg SL Q5M PRN PRN Reason: Pain, severe (8-10) Sacubitril/Valsartan (Entresto 24 Mg-26 Mg) 1 tab PO BID [facility] Last Admin: 06/15/18 17:40 Dose: 1 tab - Labs Labs: 06/15/18 07:03 06/15/18 07:03 Assessment and Plan - Assessment and Plan (Free Text) Plan: Patient seen and evaluated personally by me. No stress induced ischemia. Non ischemic CMP Plan of care d/w the medical laboratory technologist and as documented
--- NOTE | 2018-06-15 17:02 | CARD ---
APPROVED REPORT Date of service: 06/15/2018 Protocol: LEXISCAN Test Type: LEXISCAN STRESS Test Indications: CP Medical History: CP Target HR: 186 bpm Resting ECG: NSR WITH LVH WITH ST T CHANGES Resting Heart Rate: 81 bpm Resting Blood Pressure: 148/100mmHg submaximum (85%): 158 bpm TEST SUMMARY PREINFSNHYPERV.38:[id number]/100.0. INFUSIONDOSE 100:300.00.01.081/.0. [id number]/100.0. PROCEDURE Pharmacologic stress testing was performed using 0.4mg per 5ml of regadenoson given intravenously over 7-10 seconds. POST EXERCISE Reason for Termination: Protocol Completed Target HR: No Max HR: 81 bpm 53% of Maximum Predicted HR: 186 bpm Exercise duration: 00:30 min:sec, 0 Stage Exercise capacity: 1.0METs Max Blood Pressure: 148/100mmHg Blood Pressure response to exercise: normal resting BP - appropriate response Heart Rate response to exercise: appropriate Chest Pain: No, none Angina index: 0 Arrhythmia: No, none ST Change: No, none Deviation: 0 mm INTERPRETATION Stress EKG Conclusion: NEGATIVE LEXISCAN STRESS TEST NORMAL BP RESPONSE TO LEXISCAN NUCLEAR STUDIES TO BE READ SEPARATELY EXAM: Myocardial Perfusion REST/STRESS Imaging Protocol The imaging protocol used to acquire images was Rest Tc-99m/stress Tc-99m 1 day Rest Spect myocardial perfusion imaging was performed in supine position 45 minutes following the injection of 12.5 mCi of Tc-99 Myoview. Gated Stress Spect was performed 45 minutes after intravenous 32.9 mCi Tc-99 Myoview injection. The images were gated to evaluate regional wall motion and calculate ventricular ejection fraction.Images were reconstructed using backfilter projection method in short horizontal and verticle long axis. Spect slices were generated. RESTING DATA BQG903.71spFZ3.00L/min CSX358.00mlMyocardial Cqwc207.00g Av. Heart Rate72.00bpm EF27.00% STRESS DATA BKH516.40cgRX6.50L/min ZGB292.00mlMyocardial Okto558.00g EF28.00% Regional WT score at stress:3.00 Regional WM score at stress:3.00 Summed WT score at stress:45.00 Av. Heart Rate68.00bpmSummed WM score at stress:40.00 LV Perf. Quant 17 Seg. SSS6.00 17 Seg. SRS1.00 17 Seg. SDS5.00 Stress Defect Extent (% LAD)0.00Rest Defect Extent (% LAD)0.00Rev. Defect Extent (% LAD)0.00 Stress Defect Extent (% LCX)35.00Rest Defect Extent (% LCX)11.30Rev. Defect Extent (% LCX)18.80 Stress Defect Extent (% RCA)2.20Rest Defect Extent (% RCA)0.00Rev. Defect Extent (% RCA)0.00 Stress Defect Extent (% ARIAS)9.30Rest Defect Extent (% ARIAS)2.20Rev. Defect Extent (% ARIAS)5.00 IMPRESSION Abnormal Myocardial Perfusion exercise stress study Left Ventricle LV Size/Shape: The Left Ventricle is moderately dilated. LV Function:Left ventricle systolic function is severely impaired. The Ejection Fraction is <25%. Regional Wall Motion:There is severe global hypokinesis of the left ventricle. Metabolism/Perfusion Defects: There is no stress-induced ischemia noted. There are no defects. There are no perfusion/metabolism defects. Conclusion 1. There is no stress-induced ischemia noted. 2. Left ventricle systolic function is severely impaired. 3. The Ejection Fraction is <25%.
--- NOTE | 2018-06-15 18:22 | CP.PCM.PN ---
Subjective - Date & Time of Evaluation Date of Evaluation: 06/15/18 Time of Evaluation: 07:00 - Subjective Subjective: Progress note for Dr. Lerma. Seen and evaluated at bedside. Patient states he feels much better today and that shortness of breath is resolved. Denies chest pain, leg swelling, cough, nausea, vomiting, diarrhea. Objective - Vital Signs/Intake and Output Vital Signs (last 24 hours): Temp Pulse Resp BP Pulse Ox 97.5 F L 75 20 150/103 H 97 06/15/18 15:00 06/15/18 15:00 06/15/18 15:00 06/15/18 17:40 06/15/18 15:00 Intake and Output: 06/15/18 06/15/18 06:59 18:59 Output Total 1200 Balance -1200 - Medications Medications: Current Medications Amlodipine Besylate (Norvasc) 10 mg PO DAILY [facility] Last Admin: 06/15/18 09:31 Dose: Not Given Carvedilol (Coreg) 25 mg PO BID [facility] Last Admin: 06/15/18 17:40 Dose: 25 mg Chlorthalidone (Hygroton) 25 mg PO DAILY [facility] Last Admin: 06/15/18 09:31 Dose: 25 mg Ergocalciferol (Drisdol 50,000 Intl Units Cap) 1 cap PO Q7D [facility] Last Admin: 06/14/18 16:31 Dose: 1 cap Heparin Sodium (Porcine) (Heparin) 5,000 units SC Q12 [facility] Last Admin: 06/15/18 09:31 Dose: 5,000 units Hydralazine HCl (Apresoline) 25 mg PO QID [facility] Last Admin: 06/15/18 17:40 Dose: 25 mg Labetalol HCl (Trandate) 20 mg IVP Q6H PRN PRN Reason: Systolic Blood Pressure Last Admin: 06/14/18 20:31 Dose: 20 mg Nitroglycerin (Nitrostat Sl Tab) 0.4 mg SL Q5M PRN PRN Reason: Pain, severe (8-10) Sacubitril/Valsartan (Entresto 24 Mg-26 Mg) 1 tab PO BID [facility] Last Admin: 06/15/18 17:40 Dose: 1 tab - Labs Labs: 06/15/18 07:03 06/15/18 07:03 - Additional Findings Additional findings: - Constitutional Appears: Non-toxic, No Acute Distress - Head Exam Head Exam: ATRAUMATIC, NORMOCEPHALIC - Eye Exam Eye Exam: EOMI, Normal appearance - ENT Exam ENT Exam: Mucous Membranes Moist - Neck Exam Neck Exam: Full ROM, Normal Inspection - Respiratory Exam Respiratory Exam: Clear to Ausculation Bilateral. absent: Rales, Rhonchi, Wheezes, Respiratory Distress - Cardiovascular Exam Cardiovascular Exam: REGULAR RHYTHM, +S1, +S2, S4 - GI/Abdominal Exam GI & Abdominal Exam: Soft, Normal Bowel Sounds. absent: Distended, Firm, Guarding, Rigid, Tenderness - Extremities Exam Extremities Exam: Full ROM, Normal Inspection. absent: Calf Tenderness, Pedal Edema - Neurological Exam Neurological Exam: Alert, Awake, Oriented x3 - Psychiatric Exam Psychiatric exam: Normal Affect, Normal Mood - Skin Skin Exam: Dry, Normal Color, Warm Assessment and Plan - Assessment and Plan (Free Text) Plan: CHF (HFrEF) exacerbation Observation, Telemetry ECHO (02/2018): LV mildly dilated; LV fxn markedly reduced EF ~30%, Mild to moderate concentric LVH; left atrial volume index increased; Moderate mitral regurgitation; Marked pulm HTN CXR (06/13/18): IMPRESSION: Mild to moderate interstitial prominence may reflect infection or edema. EKG (06/13/18): NSR @ 83 bpm; RBBB, Non-specific T wave changes (V5/V6), prolonged Qtc Trop negative x 3 Consult: Dr Cross, Lead Manufacturing Engineering Tech - help appreciated - ECHO prelim: EF=40%, Mild TR, mild Pulm HTN - stress test performed 06/15/18 -no HOLD Entresto 24/26mg 1 tab PO BID Coreg 6.25 mg PO BID 1 Liter fluid restriction Head of bed 30 degrees Measure weight daily f/u daily BNP Chest pain, R/O ACS Trop negative x 3 EKG (06/13/18): NSR @ 83 bpm, T-waves inversion in V5/6, No acute ST changes, prolonged Qtc Elevated D-dimer D-dimer 286 CTA C/I due to elevated Cr VQ scan (06/13/18): low probability of PE. Venous doppler LE: negative for DVT bilateral CT chest w/o contrast:Cardiomegaly. Sub cm mediastinal/prevascular adenopathy, nonspecific. Overall interval resolution of previously demonstrated extensive bilateral multifocal infiltrates. There are now numerous scattered tiny solid and ground-glass pulmonary opacities most prominent within the left greater than right upper lobes measuring up to approximately 9 mm in the left upper lobe. Infectious or inflammatory etiologies are favored. Recommend clinical correlation and CT follow-up at 3-6 months. HTN urgency 180/132 on admission; 182/142 on repeat ED - given Norvasc 10mg in ED; Labetalol 10mg IV once in ED Coreg 12.5 mg PO BID Hydralazine increased to 25 mg PO QID Amlodipine 10mg PO Daily Labetalol 20mg IVP Q6H PRN SBP >180 Entresto 24/26mg 1 tab PO BID Clarithiazone 25mg PO QD added by nephro CKD (stage 3), Proteinuria BUN/Cr 25/1.9, GFR 49, UA 2+ protein - Cr in 02/21 baseline: 1.8 Consult: Dr. South, Director Of Teenage Activities - help appreciated - microalbumin:Cr ratio (536:297), Protein:Cr ratio (66:297), Urine Electrolytes - Renal US unremarkable - 24 hour urine collection: high 379.3 - Kidney biopsy likely Friday 06/16 Abnormal UA; Proteinuria UA (06/13/18): Protein 2+, LE 3+, WBC 46, RBC 8, Sq Epithlial 12, Hyaline Casts 6- 10 - not clean cath; repeat protein 2+, LE 1+ - Pt Asymptomatic Prolonged QTc Initial EKG showed QTc of 483 Avoid QT prolonging agents (i.e. 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 F/u cardio and nephro Case discussed with Dr. Maria Guadalupe Ziegler PGY-1
[2018-06-16 06:42] LABS: BASO # 0.1 K/uL (0.0-0.2); BASO % 1.2 % (0.0-2.0); EOS # 0.7 K/uL (0.0-0.7); EOS % 7.9 % (0.0-4.0); HEMOGLOBIN 13.1 g/dL (12.0-18.0); LYMPH % 21.8 % (20.0-40.0); MEAN CELL VOLUME 78.9 fL (80.0-94.0); MEAN CORPUSCULAR HEMOGLOBIN 26.6 pg (27.0-31.0); MEAN CORPUSCULAR HGB CONC 33.7 g/dL (33.0-37.0); MEAN PLATELET VOLUME 7.4 fL (7.2-11.7); MONO # 0.6 K/uL (0.0-0.8); MONO % 6.6 % (0.0-10.0); NEUT # 5.8 K/uL (1.8-7.0); NEUT % 62.5 % (50.0-75.0); NRBC % 0.1 % (0.0-2.0); RBC 4.92 Mil/uL (4.40-5.90); RED CELL DISTRIBUTION WIDTH 16.2 % (11.5-14.5); WHITE BLOOD COUNT 9.2 K/uL (4.8-10.8)
[2018-06-16 07:40] LABS: ALB/GLOB RATIO 1.1 (1.0-2.1); ALBUMIN 3.9 g/dL (3.5-5.0); CALCIUM 9.1 mg/dl (8.6-10.4)
[2018-06-16 07:49] VITALS: BP 148/95; PULSE 81; TEMP 98.2; O2SAT 98
[2018-06-16] MEDS: Sacubitril/Valsartan 24-26mg Tab PO SCH (09:37)
--- NOTE | 2018-06-16 14:44 | CP.PCM.PN ---
Subjective - Date & Time of Evaluation Date of Evaluation: 06/16/18 Time of Evaluation: 09:00 Objective - Vital Signs/Intake and Output Vital Signs (last 24 hours): Temp Pulse Resp BP Pulse Ox 98.2 F 81 20 148/95 H 98 06/16/18 07:00 06/16/18 07:00 06/16/18 07:00 06/16/18 09:36 06/16/18 07:00 Intake and Output: 06/16/18 06/16/18 06:59 18:59 Intake Total 550 Balance 550 - Medications Medications: Current Medications Amlodipine Besylate (Norvasc) 10 mg PO DAILY [facility] Last Admin: 06/16/18 09:37 Dose: 10 mg Carvedilol (Coreg) 25 mg PO BID [facility] Last Admin: 06/16/18 09:36 Dose: 25 mg Chlorthalidone (Hygroton) 25 mg PO DAILY [facility] Last Admin: 06/16/18 09:36 Dose: 25 mg Ergocalciferol (Drisdol 50,000 Intl Units Cap) 1 cap PO Q7D [facility] Last Admin: 06/14/18 16:31 Dose: 1 cap Heparin Sodium (Porcine) (Heparin) 5,000 units SC Q12 [facility] Last Admin: 06/16/18 09:37 Dose: 5,000 units Hydralazine HCl (Apresoline) 25 mg PO QID [facility] Last Admin: 06/16/18 14:32 Dose: 25 mg Labetalol HCl (Trandate) 20 mg IVP Q6H PRN PRN Reason: Systolic Blood Pressure Last Admin: 06/14/18 20:31 Dose: 20 mg Nitroglycerin (Nitrostat Sl Tab) 0.4 mg SL Q5M PRN PRN Reason: Pain, severe (8-10) Sacubitril/Valsartan (Entresto 24 Mg-26 Mg) 1 tab PO BID [facility] Last Admin: 06/16/18 09:37 Dose: 1 tab - Labs Labs: 06/16/18 06:30 06/16/18 06:30
--- NOTE | 2018-06-16 14:50 | CP.PCM.DIS ---
<ZieglerBianka P - Last Filed: 06/16/18 21:48> Provider - Provider Date of Admission: 06/15/18 13:42 Attending physician: Priya Lerma DO Consults: 06/13/18 13:44 Cardiology Consult Routine Comment: Consulting Provider: Willi Cross Consulting Physician: Willi Cross Reason for Consult: HFrEF 06/13/18 13:45 Nephrology Consult Routine Comment: Consulting Provider: Jacky South Consulting Physician: Jacky South Reason for Consult: CKD 06/13/18 22:42 Inpatient [facility] Referral Routine Comment: Physician Instructions: Reason For Exam: chf Time Spent in preparation of Discharge (in minutes): 35 Diagnosis - Discharge Diagnosis (1) CHF exacerbation Status: Acute (2) Chronic kidney disease (CKD) Status: Acute (3) Hypertensive urgency Status: Acute (4) Proteinuria Status: Acute Hospital Course - Lab Results Lab Results: Most Recent Lab Values WBC 9.2 K/uL (4.8-10.8) 06/16/18 06:30 RBC 4.92 Mil/uL (4.40-5.90) 06/16/18 06:30 Hgb 13.1 g/dL (12.0-18.0) 06/16/18 06:30 Hct 38.8 % (35.0-51.0) 06/16/18 06:30 MCV 78.9 fL (80.0-94.0) L 06/16/18 06:30 MCH 26.6 pg (27.0-31.0) L 06/16/18 06:30 MCHC 33.7 g/dL (33.0-37.0) 06/16/18 06:30 RDW 16.2 % (11.5-14.5) H 06/16/18 06:30 Plt Count 288 K/uL (130-400) 06/16/18 06:30 MPV 7.4 fL (7.2-11.7) 06/16/18 06:30 Neut % (Auto) 62.5 % (50.0-75.0) 06/16/18 06:30 Lymph % (Auto) 21.8 % (20.0-40.0) 06/16/18 06:30 Scurry % (Auto) 6.6 % (0.0-10.0) 06/16/18 06:30 Eos % (Auto) 7.9 % (0.0-4.0) H 06/16/18 06:30 Baso % (Auto) 1.2 % (0.0-2.0) 06/16/18 06:30 Neut # (Auto) 5.8 K/uL (1.8-7.0) 06/16/18 06:30 Lymph # (Auto) 2.0 K/uL (1.0-4.3) 06/16/18 06:30 Scurry # (Auto) 0.6 K/uL (0.0-0.8) 06/16/18 06:30 Eos # (Auto) 0.7 K/uL (0.0-0.7) 06/16/18 06:30 Baso # (Auto) 0.1 K/uL (0.0-0.2) 06/16/18 06:30 D-Dimer, Quantitative 286 ng/mlDDU (0-243) H 06/13/18 10:08 Sodium 136 mmol/L (132-148) 06/16/18 06:30 Potassium 3.8 mmol/L (3.6-5.2) 06/16/18 06:30 Chloride 101 mmol/L (98-107) 06/16/18 06:30 Carbon Dioxide 25 mmol/L (22-30) 06/16/18 06:30 Anion Gap 13 (10-20) 06/16/18 06:30 BUN 24 mg/dL (9-20) H 06/16/18 06:30 Creatinine 1.9 mg/dL (0.8-1.5) H 06/16/18 06:30 Est GFR ( Amer) 49 06/16/18 06:30 Est GFR (Non-Af Amer) 41 06/16/18 06:30 Random Glucose 113 mg/dL (75-110) H 06/16/18 06:30 Hemoglobin A1c 5.5 % (4.2-6.5) 06/14/18 08:26 Calcium 9.1 mg/dl (8.6-10.4) 06/16/18 06:30 Phosphorus 3.6 mg/dL (2.5-4.5) 06/16/18 06:30 Magnesium 2.0 mg/dL (1.6-2.3) 06/16/18 06:30 Total Bilirubin 0.4 mg/dL (0.2-1.3) 06/16/18 06:30 AST 19 U/L (17-59) 06/16/18 06:30 ALT 14 U/L (21-72) L D 06/16/18 06:30 Alkaline Phosphatase 60 U/L (38-126) 06/16/18 06:30 Total Creatine Kinase 297 U/L (55-170) H 06/14/18 00:16 CK-MB (Mass) 1.37 ng/mL (0.0-3.38) 06/14/18 00:16 Troponin I 0.0910 ng/mL (0.00-0.120) 06/14/18 00:16 NT-Pro-B Natriuret Pep 452 pg/mL (0-450) H 06/16/18 06:30 Total Protein 7.2 g/dL (6.3-8.3) 06/16/18 06:30 Albumin 3.9 g/dL (3.5-5.0) 06/16/18 06:30 Globulin 3.4 gm/dL (2.2-3.9) 06/16/18 06:30 Albumin/Globulin Ratio 1.1 (1.0-2.1) 06/16/18 06:30 Triglycerides 164 mg/dL (0-149) H 06/15/18 07:03 Cholesterol 204 mg/dL (0-199) H 06/15/18 07:03 LDL Cholesterol Direct 138 mg/dL (0-129) H 06/15/18 07:03 HDL Cholesterol 39 mg/dL (30-70) 06/15/18 07:03 25-OH Vitamin D Total 18.3 NG/ML (30.0-100.0) L 06/14/18 08:26 TSH 3rd Generation 1.19 mIU/L (0.46-4.68) 06/14/18 08:26 Calcium (PTH Intact) 8.6 mg/dL (8.6-10.3) 06/14/18 08:26 PTH w/Ion &Tot Calcium 62 pg/mL (14-64) 06/14/18 08:26 Urine Color Yellow (YELLOW) 06/13/18 16:50 Urine Clarity Hazy (Clear) 06/13/18 16:50 Urine pH 5.0 (5.0-8.0) 06/13/18 16:50 Ur Specific Bailey 1.025 (1.003-1.030) 06/13/18 16:50 Urine Protein 2+ mg/dL (NEGATIVE) H 06/13/18 16:50 Urine Glucose (UA) Normal mg/dL (Normal) 06/13/18 16:50 Urine Ketones Negative mg/dL (NEGATIVE) 06/13/18 16:50 Urine Blood Negative (NEGATIVE) 06/13/18 16:50 Urine Nitrate Negative (NEGATIVE) 06/13/18 16:50 Urine Bilirubin Negative (NEGATIVE) 06/13/18 16:50 Urine Urobilinogen Normal mg/dL (0.2-1.0) 06/13/18 16:50 Ur Leukocyte Esterase 1+ Nelly/uL (Negative) H 06/13/18 16:50 Urine WBC (Auto) 46 /hpf (0-5) H 06/13/18 10:21 Urine RBC (Auto) 8 /hpf (0-3) H 06/13/18 10:21 Ur Squamous Epith Cells 12 /hpf (0-5) H 06/13/18 10:21 Urine Bacteria Rare (<OCC) 06/13/18 10:21 Hyaline Casts 6-10 /lpf (0-2) H 06/13/18 10:21 Ur Random Creatinine 297.4 mg/dL 06/13/18 16:50 U Random Total Protein 66.0 mg/dL (0.0-12.0) H 06/14/18 14:18 Ur Random Sodium 130 mmol/L 06/13/18 16:50 Ur Random Phosphorus 129.9 mg/dL 06/13/18 16:50 Ur Random Calcium 11.7 mg/dL 06/13/18 16:50 Urine Collection Time 24 HRS 06/15/18 14:02 Urine Total Volume 2300 mL 06/15/18 14:02 Urine Microalbumin 536.6 mg/L (0.0-16.6) H 06/13/18 16:50 Ur Protein 24 Hr Calc 621.0 mg/24hr (42-225) H 06/15/18 14:02 Urine Magnesium 10.0 mg/dL 06/13/18 16:50 Urine Opiates Screen Negative (NEGATIVE) 06/13/18 16:50 Urine Methadone Screen Negative (NEGATIVE) 06/13/18 16:50 Ur Barbiturates Screen Negative (NEGATIVE) 06/13/18 16:50 Ur Phencyclidine Scrn Negative (NEGATIVE) 06/13/18 16:50 Ur Amphetamines Screen Negative (NEGATIVE) 06/13/18 16:50 U Benzodiazepines Scrn Negative (NEGATIVE) 06/13/18 16:50 U Oth Cocaine Metabols Negative (NEGATIVE) 06/13/18 16:50 U Cannabinoids Screen Negative (NEGATIVE) 06/13/18 16:50 HALLEY Screen Negative (Negative) 06/13/18 19:01 Complement C3 127.0 mg/dL (88.0-165.0) 06/13/18 19:02 Complement C4 48.7 mg/dL (14.0-44.0) H 06/13/18 19:02 RPR Nonreactive (NONREACTIVE) 06/13/18 19:01 - Hospital Course Hospital Course: On admission: Patient is a 33 year old male, with PMHx of HTN, pulmonary HTN, CHF (systolic), CKD (stage III) and recent admission to [facility] in 02/2018 for pneumonia, presents for shortness of breath. Patient states he began noticing increased SOB and generalized fatigue over "the last few days" but became markedly worse yesterday. He states he became "winded tying his shoes" and knew he had to go to the hospital. SOB worse with walking, improves mildly with rest. States during shower he had episode of "chest tightness" without radiation to arm/neck, that passed "a few minutes after he finished showering." Admits he has not been restricting his fluid intake since discharge. Admits he has not taken any medications prescribed at previous discharge for the last month. Former smoker (1 ppd x 15 yrs; quit in 02/2018). Denies family history of blood clots, heart disease, or kidney disease. Denies having fever,chills, difficulty urinating, change in urine stream, urgency, nausea, and vomiting. Hospital Course: Patient was admitted for CHF exacerbation. Pro BNP was 1480 on admission. CXR (06/13/18) showed Mild to moderate interstitial prominence may reflect infection or edema. Dr. Cross, cardiology was consulted. An Echo was obtained, notable for EF 40%, global LV hypokinesis, mild TR, mild pulm HTN. See full report. Stress test performed 06/15/18 showed no stress induced ischemia and estimated EF of 25%. Echo is better indicator of EF, therefore no need for life vest. Patient is to follow up with cardiology out patient and obtain a MUGA scan. Patient was treated with Entresto, Coreg, fluid restriction, and daily weights measured. Pro BNPs trended and noted to decrease from 1400s to 400s. Patient presented with Chest pain. Troponins were negative x 3. EKG showed NSR @ 83 bpm, T-waves inversion in V5/6, No acute ST changes, prolonged Qtc. Patient had an elevated D-dimer 286 in the ED. Venous doppler LE: negative for DVT bilateral. VQ scan (06/13/18): low probability of PE. CT chest w/o contrast:Cardiomegaly. Sub cm mediastinal/prevascular adenopathy, nonspecific. Overall interval resolution of previously demonstrated extensive bilateral multifocal infiltrates. There are now numerous scattered tiny solid and ground- glass pulmonary opacities most prominent within the left greater than right upper lobes measuring up to approximately 9 mm in the left upper lobe. Infectious or inflammatory etiologies are favored. Recommend clinical correlation and CT follow-up at 3-6 months. Patient is to follow up with their primary care doctor. Patient present with hypertensive urgency with BP of 180/132. Latest BP was 149/95. Over the course of hospitalization, his HTN meds were adjusted and patient will be discharge on the following regimen: Coreg 12.5 mg PO BID, Hydralazine increased to 25 mg PO QID, Amlodipine 10mg PO Daily, Losartan 12.5 once daily, and Clarithiazone 25mg PO QD. Patient is to maintain compliance with medication, follow up BP with PMD. BUN/Cr 25/1.9 admission. Cr on prior admissions appears to be 1.6-1.8, so not STALIN overlying. Dr. South, Nephrology was consulted. Repeat UA and prior UAs with 2+ protein, suggesting proteinuric renal disorder. Need to rule to vasculitis; ANCA pending, complement unremarkable, HALLEY negative. Urine electrolytes: Na 130, Phos 129, Ca 11.7, Mg 10; Urine Microalbumin 536. 24hr urine protein: 621. Renal US was unremarkable- See full report. Patient was cleared for discharge from Nephrology standpoint. Patient is to schedule a renal biopsy as outpatient with Dr. South. Patient found to have Vitamin D deficiency and treated with. Ergocalciferol 1 cap PO Q7D, which he will continue at home for 8 weeks. Discharge: Patient is stable for discharge as per Dr. Marta Paul, Dr. Cross and Dr. South. Patient Must take the following medication as directed: Clorthalidone 25mg once daily at 8AM Coreg 25mg twice a day at 8AM and 8PM Hydralazine 25mg four times per day at 8am, 12PM, 4PM and 8PM Amlodepine 10mg once a day at 12PM Losartan 12.5 once a day at 4PM Aspirin 81mg once a day at 8AM Ergocalciferol 50,000 units one capsule once a week for 8 weeks starting Tuesday06/21/18 Please establish care at the [facility] on Floor B of [facility]. You must call [phone] on Tuesday for an appointment within one week. Through the clinic, patient must establish care with cardiology within 30 days of discharge for follow up and to schedule a MUGA scan of the heart. Patient must call the kidney doctor, Dr. Jacky South at [phone] on Tuesday to schedule a kidney biopsy. No drinking. No smoking. No NSAID medication (Advil, ibuprofen, Aleve, naproxen) Patient is to return to the emergency room for any new or worsening symptoms. Discharge Exam - Additional Findings Additional findings: - Constitutional Appears: Non-toxic, No Acute Distress - Head Exam Head Exam: ATRAUMATIC, NORMOCEPHALIC - Eye Exam Eye Exam: EOMI, Normal appearance - ENT Exam ENT Exam: Mucous Membranes Moist - Neck Exam Neck Exam: Full ROM, Normal Inspection - Respiratory Exam Respiratory Exam: Clear to Ausculation Bilateral. absent: Rales, Rhonchi, Wheezes, Respiratory Distress - Cardiovascular Exam Cardiovascular Exam: REGULAR RHYTHM, +S1, +S2 - GI/Abdominal Exam GI & Abdominal Exam: Soft, Normal Bowel Sounds. absent: Distended, Firm, Guarding, Rigid, Tenderness - Extremities Exam Extremities Exam: Full ROM, Normal Inspection. absent: Calf Tenderness, Pedal Edema - Neurological Exam Neurological Exam: Alert, Awake, Oriented x3 - Psychiatric Exam Psychiatric exam: Normal Affect, Normal Mood - Skin Skin Exam: Dry, Normal Color, Warm Discharge Plan - Discharge Medications Prescriptions: amLODIPine [Norvasc] 10 mg PO DAILY #30 tab Aspirin [Aspirin Chewable] 81 mg PO DAILY #30 chew Carvedilol [Coreg] 25 mg PO BID #60 tab Chlorthalidone [Hygroton] 25 mg PO DAILY #30 tab Ergocalciferol [Drisdol 50,000 Intl Units Cap] 1 cap PO Q7D #8 cap hydrALAZINE [Apresoline] 25 mg PO QID #120 tab Losartan [Cozaar] 12.5 mg PO DAILY #30 tab - Follow Up Plan Condition: STABLE Disposition: HOME/ ROUTINE Instructions: Heart Failure, Adult, Heart Healthy Diet, Chronic Kidney Disease, Amlodipine, Aspirin, Carvedilol, Ergocalciferol, Hydralazine, Losartan, Hypert ension (DC) Additional Instructions: Patient is stable for discharge as per Dr. Marta Paul, Dr. Cross and Dr. South. Patient Must take the following medication as directed: Clorthalidone 25mg once daily at 8AM Coreg 25mg twice a day at 8AM and 8PM Hydralazine 25mg four times per day at 8am, 12PM, 4PM and 8PM Amlodepine 10mg once a day at 12PM Losartan 12.5 once a day at 4PM Aspirin 81mg once a day at 8AM Ergocalciferol 50,000 units one capsule once a week for 8 weeks starting Tuesday06/21/18 Please establish care at the [facility] on Floor [address] of [facility], follow up appointment scheduled for June 22 at 3:00pm.Through the clinic, patient must establish care with cardiology within 30 days of discharge for follow up and to schedule a MUGA scan of the heart. Patient must call the kidney doctor, Dr. Jacky South at [phone] on Tuesday to schedule a kidney biopsy. No drinking. No smoking. No NSAID medication (Advil, ibuprofen, Aleve, naproxen) Patient is to return to the emergency room for any new or worsening symptoms. Referrals: [facility] at [facility] [Outside] - 06/22/18 3:00 pm Willi Cross MD [Staff Provider] - Jacky South MD [Staff Provider] - <Ranjit Paul - Last Filed: 06/17/18 16:06> Provider - Provider Date of Admission: 06/15/18 13:42 Attending physician: Priya Lerma DO Consults: 06/13/18 13:44 Cardiology Consult Routine Comment: Consulting Provider: Willi Cross Consulting Physician: Willi Cross Reason for Consult: HFrEF 06/13/18 13:45 Nephrology Consult Routine Comment: Consulting Provider: Jacky South Consulting Physician: Jacky South Reason for Consult: CKD 06/13/18 22:42 Inpatient [facility] Referral Routine Comment: Physician Instructions: Reason For Exam: chf Hospital Course - Lab Results Lab Results: Most Recent Lab Values WBC 9.2 K/uL (4.8-10.8) 06/16/18 06:30 RBC 4.92 Mil/uL (4.40-5.90) 06/16/18 06:30 Hgb 13.1 g/dL (12.0-18.0) 06/16/18 06:30 Hct 38.8 % (35.0-51.0) 06/16/18 06:30 MCV 78.9 fL (80.0-94.0) L 06/16/18 06:30 MCH 26.6 pg (27.0-31.0) L 06/16/18 06:30 MCHC 33.7 g/dL (33.0-37.0) 06/16/18 06:30 RDW 16.2 % (11.5-14.5) H 06/16/18 06:30 Plt Count 288 K/uL (130-400) 06/16/18 06:30 MPV 7.4 fL (7.2-11.7) 06/16/18 06:30 Neut % (Auto) 62.5 % (50.0-75.0) 06/16/18 06:30 Lymph % (Auto) 21.8 % (20.0-40.0) 06/16/18 06:30 Scurry % (Auto) 6.6 % (0.0-10.0) 06/16/18 06:30 Eos % (Auto) 7.9 % (0.0-4.0) H 06/16/18 06:30 Baso % (Auto) 1.2 % (0.0-2.0) 06/16/18 06:30 Neut # (Auto) 5.8 K/uL (1.8-7.0) 06/16/18 06:30 Lymph # (Auto) 2.0 K/uL (1.0-4.3) 06/16/18 06:30 Scurry # (Auto) 0.6 K/uL (0.0-0.8) 06/16/18 06:30 Eos # (Auto) 0.7 K/uL (0.0-0.7) 06/16/18 06:30 Baso # (Auto) 0.1 K/uL (0.0-0.2) 06/16/18 06:30 D-Dimer, Quantitative 286 ng/mlDDU (0-243) H 06/13/18 10:08 Sodium 136 mmol/L (132-148) 06/16/18 06:30 Potassium 3.8 mmol/L (3.6-5.2) 06/16/18 06:30 Chloride 101 mmol/L (98-107) 06/16/18 06:30 Carbon Dioxide 25 mmol/L (22-30) 06/16/18 06:30 Anion Gap 13 (10-20) 06/16/18 06:30 BUN 24 mg/dL (9-20) H 06/16/18 06:30 Creatinine 1.9 mg/dL (0.8-1.5) H 06/16/18 06:30 Est GFR ( Amer) 49 06/16/18 06:30 Est GFR (Non-Af Amer) 41 06/16/18 06:30 Random Glucose 113 mg/dL (75-110) H 06/16/18 06:30 Hemoglobin A1c 5.5 % (4.2-6.5) 06/14/18 08:26 Calcium 9.1 mg/dl (8.6-10.4) 06/16/18 06:30 Phosphorus 3.6 mg/dL (2.5-4.5) 06/16/18 06:30 Magnesium 2.0 mg/dL (1.6-2.3) 06/16/18 06:30 Total Bilirubin 0.4 mg/dL (0.2-1.3) 06/16/18 06:30 AST 19 U/L (17-59) 06/16/18 06:30 ALT 14 U/L (21-72) L D 06/16/18 06:30 Alkaline Phosphatase 60 U/L (38-126) 06/16/18 06:30 Total Creatine Kinase 297 U/L (55-170) H 06/14/18 00:16 CK-MB (Mass) 1.37 ng/mL (0.0-3.38) 06/14/18 00:16 Troponin I 0.0910 ng/mL (0.00-0.120) 06/14/18 00:16 NT-Pro-B Natriuret Pep 452 pg/mL (0-450) H 06/16/18 06:30 Total Protein 7.2 g/dL (6.3-8.3) 06/16/18 06:30 Albumin 3.9 g/dL (3.5-5.0) 06/16/18 06:30 Globulin 3.4 gm/dL (2.2-3.9) 06/16/18 06:30 Albumin/Globulin Ratio 1.1 (1.0-2.1) 06/16/18 06:30 Triglycerides 164 mg/dL (0-149) H 06/15/18 07:03 Cholesterol 204 mg/dL (0-199) H 06/15/18 07:03 LDL Cholesterol Direct 138 mg/dL (0-129) H 06/15/18 07:03 HDL Cholesterol 39 mg/dL (30-70) 06/15/18 07:03 Renin 1.13 ng/mL/h (0.25-5.82) 06/14/18 08:26 Aldosterone 10 ng/dL 06/14/18 08:26 Aldosterone/Renin Ratio 8.8 Ratio (0.9-28.9) 06/14/18 08:26 25-OH Vitamin D Total 18.3 NG/ML (30.0-100.0) L 06/14/18 08:26 TSH 3rd Generation 1.19 mIU/L (0.46-4.68) 06/14/18 08:26 Calcium (PTH Intact) 8.6 mg/dL (8.6-10.3) 06/14/18 08:26 PTH w/Ion &Tot Calcium 62 pg/mL (14-64) 06/14/18 08:26 Urine Color Yellow (YELLOW) 06/13/18 16:50 Urine Clarity Hazy (Clear) 06/13/18 16:50 Urine pH 5.0 (5.0-8.0) 06/13/18 16:50 Ur Specific Bailey 1.025 (1.003-1.030) 06/13/18 16:50 Urine Protein 2+ mg/dL (NEGATIVE) H 06/13/18 16:50 Urine Glucose (UA) Normal mg/dL (Normal) 06/13/18 16:50 Urine Ketones Negative mg/dL (NEGATIVE) 06/13/18 16:50 Urine Blood Negative (NEGATIVE) 06/13/18 16:50 Urine Nitrate Negative (NEGATIVE) 06/13/18 16:50 Urine Bilirubin Negative (NEGATIVE) 06/13/18 16:50 Urine Urobilinogen Normal mg/dL (0.2-1.0) 06/13/18 16:50 Ur Leukocyte Esterase 1+ Nelly/uL (Negative) H 06/13/18 16:50 Urine WBC (Auto) 46 /hpf (0-5) H 06/13/18 10:21 Urine RBC (Auto) 8 /hpf (0-3) H 06/13/18 10:21 Ur Squamous Epith Cells 12 /hpf (0-5) H 06/13/18 10:21 Urine Bacteria Rare (<OCC) 06/13/18 10:21 Hyaline Casts 6-10 /lpf (0-2) H 06/13/18 10:21 Ur Random Creatinine 297.4 mg/dL 06/13/18 16:50 U Random Total Protein 66.0 mg/dL (0.0-12.0) H 06/14/18 14:18 Ur Random Sodium 130 mmol/L 06/13/18 16:50 Ur Random Phosphorus 129.9 mg/dL 06/13/18 16:50 Ur Random Calcium 11.7 mg/dL 06/13/18 16:50 Urine Collection Time 24 HRS 06/15/18 14:02 Urine Total Volume 2300 mL 06/15/18 14:02 Urine Microalbumin 536.6 mg/L (0.0-16.6) H 06/13/18 16:50 Ur Protein 24 Hr Calc 621.0 mg/24hr (42-225) H 06/15/18 14:02 Urine Magnesium 10.0 mg/dL 06/13/18 16:50 Urine Opiates Screen Negative (NEGATIVE) 06/13/18 16:50 Urine Methadone Screen Negative (NEGATIVE) 06/13/18 16:50 Ur Barbiturates Screen Negative (NEGATIVE) 06/13/18 16:50 Ur Phencyclidine Scrn Negative (NEGATIVE) 06/13/18 16:50 Ur Amphetamines Screen Negative (NEGATIVE) 06/13/18 16:50 U Benzodiazepines Scrn Negative (NEGATIVE) 06/13/18 16:50 U Oth Cocaine Metabols Negative (NEGATIVE) 06/13/18 16:50 U Cannabinoids Screen Negative (NEGATIVE) 06/13/18 16:50 HALLEY Screen Negative (Negative) 06/13/18 19:01 ANCA Screen Negative (NEGATIVE) 06/13/18 19:01 c-ANCA Titer TNP 06/13/18 19:01 Proteinase 3 (PR3) <1.0 AI (<1.0) 06/13/18 19:01 p-ANCA Titer TNP 06/13/18 19:01 Atypical p-ANCA Titer TNP 06/13/18 19:01 Myeloperoxidase Ab <1.0 AI (<1.0) 06/13/18 19:01 Complement C3 127.0 mg/dL (88.0-165.0) 06/13/18 19:02 Complement C4 48.7 mg/dL (14.0-44.0) H 06/13/18 19:02 RPR Nonreactive (NONREACTIVE) 06/13/18 19:01 Attending/Attestation - Attestation I have personally seen and examined this patient.: Yes I have fully participated in the care of the patient.: Yes I have reviewed all pertinent clinical information, including history, physical exam and plan: Yes Notes (Text): 06/17/18 16:05 This is a late entry Care of this patient and discharge instructions were gone over with resident Dr. Bert Ziegler. Ranjit Paul D.O.
--- NOTE | 2018-06-16 18:38 | CP.PCM.PN ---
Subjective - Date & Time of Evaluation Date of Evaluation: 06/16/18 Time of Evaluation: 07:50 - Subjective Subjective: Nephro Progress note for Dr. South Service Todd Farah DO, PGY-3 Patient seen and examined at bedside. No new acute complaints at this time, feeling unchanged today. Denies chest pain, shortness of breath, dysuria, hematuria. S/p stress test yesterday, to obtain renal biopsy as outpatient. Objective - Vital Signs/Intake and Output Vital Signs (last 24 hours): Temp Pulse Resp BP Pulse Ox 98.2 F 81 20 148/95 H 98 06/16/18 07:00 06/16/18 07:00 06/16/18 07:00 06/16/18 09:36 06/16/18 07:00 Intake and Output: 06/16/18 06/16/18 06:59 18:59 Intake Total 550 Balance 550 - Labs Labs: 06/16/18 06:30 06/16/18 06:30 - Additional Findings Additional findings: - Constitutional Appears: Non-toxic, No Acute Distress - Head Exam Head Exam: ATRAUMATIC, NORMAL INSPECTION, NORMOCEPHALIC - Eye Exam Eye Exam: EOMI, Normal appearance. absent: Conjunctival injection, Scleral icterus Pupil Exam: absent: Irregular, Unequal - ENT Exam ENT Exam: Mucous Membranes Moist - Neck Exam Neck exam: Positive for: Full Rom, Normal Inspection. Negative for: Lymphadenopathy - Respiratory Exam Respiratory Exam: Clear to Auscultation Bilateral, NORMAL BREATHING PATTERN. absent: Accessory Muscle Use, Chest Wall Tenderness, Decreased Breath Sounds, Rales, Rhonchi, Wheezes - Cardiovascular Exam Cardiovascular Exam: RRR, +S1, +S2. absent: Tachycardia, Bradycardia, Irregular Rhythm - GI/Abdominal Exam GI & Abdominal Exam: Normal Bowel Sounds, Soft. - Extremities Exam Extremities exam: Positive for: normal capillary refill, normal inspection, pedal pulses present. Negative for: calf tenderness, joint swelling, pedal edema, tenderness - Neurological Exam awake and alert, ambulating in room without issue moving all extremities spontaneously and on command follows all commands appropriately - Psychiatric Exam Psychiatric exam: Normal Affect, Normal Mood - Skin Skin Exam: Dry, Intact, Normal Color, Warm Assessment and Plan - Assessment and Plan (Free Text) Assessment: This is a 33 yo AA M with PMH of HTN, pulmonary HTN, CHF (systolic), CKD (stage III) and recent admission to [facility] in 02/2018 for pneumonia who, presented for shortness of breath, and was found to be in hypertensive urgency with suspected CHF exacerbation. Nephro was consulted for CKD. Plan: 1) CHF exacerbation- resolved 2) Hypertensive urgency - resolved, BP now well controlled 3) CKD, etiology unclear 4) Medication non-compliance x1 month 5) HFrEF, 40% on Echo 6) Pulm HTN -Cr remains 1.9, baseline based on prior admissions appears to be 1.6-1.8, so not STALIN overlying Repeat UA and prior UAs with 2+ protein, suggesting proteinuric renal disorder Need to rule to vasculitis; ANCA pending, complement unremarkable, HALLEY negative Renal biopsy to be obtained as outpatient, patient to make appointment with Dr. South as outpatient Urine electrolytes: Na 130, Phos 129, Ca 11.7, Mg 10; Urine Microalbumin 536 24hr urine protein: [address] Chest: cardiomegaly, nonspecific mediastinal/prevascular adenopathy, numerous small solid/ground-glass pulm opacities (L>R) Echo obtained, notable for EF 40%, global LV hypokinesis, mild TR, mild pulm HTN RPR negative, GC/chlamydia pending -To obtain MUGA scan as outpatient Cleared for discharge from Nephrology standpoint. Patient seen and discussed with attending, Dr. South.
[2018-06-17 01:17] LABS: ANCA SCREEN NEGATIVE (NEGATIVE)
[2018-06-17 10:21] LABS: ALDO/PRA RATIO 8.8 Ratio (0.9-28.9)
== END 2018-06-16 16:49 | disposition home or self-care (01) | DRG 544 ==
LOC: C.ER 09:07 → C.9E 10:59 → C.3T 12:00 → C.9E 14:03 → C.5S 14:14 → OBSVTOIN 06-15 13:42
PROVIDERS: ADMIT Hospitalist; ATTEND Hospitalist
DX: I13.0 Hypertensive heart and chronic kidney disease with heart failure and stage 1 through stage 4 chronic kidney disease, or unspecified chronic kidney disease (principal); I50.23 Acute on chronic systolic (congestive) heart failure; N18.3 Chronic kidney disease, stage 3 (moderate); I16.0 Hypertensive urgency; I27.20 Pulmonary hypertension, unspecified; I45.10 Unspecified right bundle-branch block; F17.210 Nicotine dependence, cigarettes, uncomplicated; R80.9 Proteinuria, unspecified